=== PATIENT | male | born 1935 | race Caucasian/White ===

== ENCOUNTER 2016-12-24 11:32 | Emergency (ER) | payer OTHER, BC ==
[2016-12-24 11:49] VITALS: BP 151/89; PULSE 65; RESP 16; TEMP 97.5; O2SAT 95
--- NOTE | 2016-12-24 12:02 | UCPHY ---
H & P Patient Type: New Chief Complaint Nursing Narrative: Rash supraumbilical x 3 days. denies itching. Denies recent travel or camping. Denies f/c Time Seen by Provider: 12/24/16 11:50 HPI/ROS: CHIEF COMPLAINT: Rash HISTORY OF PRESENT ILLNESS: Patient is an 81-year-old man who comes to the Urgent Care complaining of a rash over his abdomen and somewhat on his lower chest. He 1st noticed it 2 days ago. It is pruritic. It is not itchy. It is not unilateral. He thought maybe he got a tick bite but has not spent time outside. Also it is winter. REVIEW OF SYSTEMS: Constitutional: denies: chills, fever, recent illness, recent injury EENTM: denies: blurred vision, double vision, nose congestion Respiratory: denies: cough, shortness of breath Cardiac: denies: chest pain, irregular heart rate, lightheadedness, palpitations Gastrointestinal/Abdominal: denies: abdominal pain, diarrhea, nausea, vomiting, blood streaked stools Genitourinary: denies: dysuria, frequency, hematuria, pain Musculoskeletal: denies: joint pain, muscle pain Skin: See HPI Neurological: denies: headache, numbness, paresthesia, tingling, dizziness, weakness Hematologic/Lymphatic: denies: blood clots, easy bleeding, easy bruising Immunologic/allergic: denies: HIV/AIDS, transplant EXAM: GENERAL: Well-appearing, well-nourished and in no acute distress. HEAD: Atraumatic, normocephalic. EYES: Pupils equal round and reactive to light, extraocular movements intact, sclera anicteric, conjunctiva are normal. ENT: TMs normal, nares patent, oropharynx clear without exudates. Moist mucous membranes. NECK: Normal range of motion, supple without lymphadenopathy or JVD. LUNGS: Breath sounds clear to auscultation bilaterally and equal. No wheezes rales or rhonchi. HEART: Regular rate and rhythm without murmurs, rubs or gallops. ABDOMEN: Soft, nontender, normoactive bowel sounds. No guarding, no rebound. No masses appreciated. BACK: No CVA tenderness, no spinal tenderness, step-offs or deformities EXTREMITIES: Normal range of motion, no pitting or edema. No clubbing or cyanosis. NEUROLOGICAL: Cranial nerves II through XII grossly intact. Normal speech, normal gait. 5/5 strength, normal movement in all extremities, normal sensation PSYCH: Normal mood, normal affect. SKIN: Small excoriated rash over abdomen, bilateral, seem to be centered around hair follicles, no pustules Source: Patient Exam Limitations: No limitations - Medical/Surgical History Hx Asthma: No Hx Chronic Respiratory Disease: No Hx Diabetes: No Hx Cardiac Disease: No Hx Renal Disease: No Hx Cirrhosis: No Hx Alcoholism: No Hx HIV/AIDS: No Hx Splenectomy or Spleen Trauma: No Other PMH: PCP [facility]. Flu Vacc UTD . Tetanus UTD - Family History Significant Family History: Hypertension - Social History Smoking Status: Former smoker Alcohol Use: Sober Drug Use: None Constitutional: Initial Vital Signs Temperature (C) 36.4 C 12/24/16 11:46 Heart Rate 65 12/24/16 11:46 Respiratory Rate 16 12/24/16 11:46 Blood Pressure 151/89 H 12/24/16 11:46 O2 Sat (%) 95 12/24/16 11:46 O2 Delivery Mode Room Air Allergies/Adverse Reactions: No Known Allergies Allergy (Verified 12/24/16 11:49) Home Medications: Medication Instructions Recorded Aspirin EC 81 mg (*) 07/01/16 Simvastatin 07/01/16 Cephalexin [Keflex] 500 mg PO TID #21 cap 12/24/16 Medical Decision Making ED Course/Re-evaluation: Patient has what appears to be folliculitis. No obvious cause. No hot tub use or outdoors. No sign of insect bites on legs or extremities or back. Differential Diagnosis: Partial list of the Differential diagnosis considered include but were not limited to; shingles, folliculitis, acne, candidiasis, insect bites, tenia and although unlikely based on the history and physical exam, I also considered allergic reaction, Montesinos Shaq's. I discussed these differential diagnoses and the plan with the patient as well as the usual and expected course. The patient understands that the diagnosis is provisional and that in medicine we are not always correct and that further workup is often warranted. Usual and customary warnings were given. All of the patient's questions were answered. The patient was instructed to return to the emergency department should the symptoms at all worsen or return, otherwise to followup with the physician as we discussed. - Data Points Medications Given: Discontinued Medications Cephalexin HCl (Keflex) 500 mg PO EDNOW ONE PRN Reason: Protocol Stop: 12/24/16 12:04 Last Admin: 12/24/16 12:11 Dose: 500 mg Departure - Departure Disposition: Home, Routine, Self-Care Clinical Impression: Folliculitis Condition: Fair Instructions: Folliculitis (ED) Referrals: Fer Shaikh MD [Primary Care Provider] - As per Instructions Prescriptions: Cephalexin [Keflex] 500 mg PO TID #21 cap - PQRS PQRS Measurement: 134: Depression screening and followup, PRIME MD-PHQ2 (12 years and older) Over the last 2 weeks, how often have you been bothered by any of the following problems? 1. Feeling down, depressed, or hopeless? 2. Little interest or pleasure in doing things? Patient answered no to both 1 and 2 130: Documentation of medications. Reviewed all patient medications, doses, route and frequency. 226: Do you smoke? No. 47: 65 and older: Advanced care planning. Patient designates surrogate decision maker as spouse . Patient has advanced directive. 51: 18 years old and older with diagnosis of COPD, spirometry performance. Spirometry not performed; equipment not available. 52: 18 years old and older with COPD and symptoms of COPD or FEV1<60% predicted prescribed a B Agonist. Not applicable
[2016-12-24] MEDS ORDERED: CEPHALEXIN 500 MG CAP PO ONE (12:03)
== END 2016-12-24 12:13 | disposition home or self-care (01) ==
LOC: CED 11:32
DX: L73.9 Follicular disorder, unspecified (principal)
CPT/HCPCS: 99204-PO; G0463-PO

== ENCOUNTER 2017-03-31 14:20 | Emergency (ER) | payer OTHER, BC ==
[2017-03-31] MEDS ORDERED: ONDANSETRON 4 MG/2 ML VIAL IVP ONE (14:29)
[2017-03-31] MEDS ORDERED: NS 1,000 ML IV ONE ×2 (14:29→15:50)
[2017-03-31] MEDS ORDERED: HYDROmorphONE/DILAUDID 1 MG/ML SYR IVP ONE ×2 (14:29→14:56)
--- NOTE | 2017-03-31 14:34 | EDPHY ---
H & P Smoking Status: Former smoker <DarianadarioDarling arizaughlin Sruthi - Last Filed: 03/31/17 15:11> <Adry Christianson - Last Filed: 03/31/17 22:44> Time Seen by Provider: 03/31/17 14:26 HPI/ROS: HPI Right flank pain. 81-year-old male by private vehicle with his daughter. This patient complains of right-sided flank pain with radiation down into the right groin area and right testicle, onset about 2 hours prior to arrival. He does not have a prior history of kidney stones. There is no history of trauma. He denies hematuria. No fever. Pain described as cramping and sharp. He has had nausea and dry heaving. ROS: Constitutional: No fever, no chills. No weakness. Eyes: No discharge. No changes in vision. ENT: No sore throat. No nasal congestion or rhinorrhea. Respiratory: No cough. No shortness of breath. Cardiac: No chest pain, no palpitations. Gastrointestinal: As above, no diarrhea. Genitourinary: No hematuria. No dysuria or increased frequency with urination. Musculoskeletal: No back pain. No neck pain. No myalgias or arthralgias. Skin: No rashes. Neurological: No headache. No focal weakness or altered sensation. Past medical history: No significant past medical history. Social history: Here with his daughter who is a nurse. Nonsmoker. No alcohol. Physical Exam: General Appearance: Alert, appears anxious on uncomfortable. This patient is responding to questions appropriately and in full sentences. This patient appears well-hydrated and well-nourished. Eyes: Pupils equal and round no pallor or injection. No lid edema, erythema or injection. Respiratory: There are no retractions, lungs are clear to auscultation with good air movement bilaterally. Cardiovascular: Regular rate and rhythm. No murmur. Gastrointestinal: Abdomen is soft with vague right lower quadrant tenderness on palpation, no masses, bowel sounds normal. No focal tenderness at McBurney' s point. No Caballero sign. Neurological: Motor sensory function is grossly intact. Cranial nerves are normal. Gait is normal. Skin: Warm and dry, no rashes. Musculoskeletal: Right sided CVA tenderness on palpation. No left-sided tenderness. Extremities are symmetrical. All joints range without pain or impingement. Psychiatric: No agitation. No depression. Database: EKG: Imaging: Procedures: Emergency department course: IV placed. He was placed on a monitor. He was started on IV normal saline with 1 L to be given over the next hour. He will initially be given 1 mg of IV hydromorphone and 4 mg of IV Zofran. After verification of a normal creatinine he will be given 30 mg of IV Toradol. Plan for CT imaging discussed with patient and daughter. Patient consents. 3:00 p.m., patient awaits CT imaging. Care turned over to Dr. Adry Christianson at this time. Differential Diagnosis: The differential diagnosis on this patient includes but is not limited to ureterolithiasis. Epidural abscess, AAA, testicular torsion, pyelonephritis, appendicitis unlikely. This represents a partial list of diagnoses considered. These considerations are based on history, physical exam, past history, reassessment and diagnostic testing. (Thelma Quiroz) Constitutional: Initial Vital Signs Temperature (C) 36.6 C 03/31/17 14:24 Heart Rate 83 03/31/17 14:24 Respiratory Rate 16 03/31/17 14:24 Blood Pressure 189/116 H 03/31/17 14:24 O2 Sat (%) 94 03/31/17 14:24 O2 Delivery Mode Room Air O2 (L/minute) 2 Allergies/Adverse Reactions: No Known Allergies Allergy (Verified 03/31/17 14:32) Home Medications: Medication Instructions Recorded Aspirin EC 81 mg (*) 07/01/16 Simvastatin 07/01/16 Hydrocodone/APAP 5/325 [Shelley 1 - 2 tab PO Q4H PRN #6 tab 03/31/17 5/325 (*)] Medical Decision Making <Thelma Quiroz - Last Filed: 03/31/17 15:11> - Diagnostics Imaging: Discussed imaging studies w/ call center director Radiologist <Adry Christianson - Last Filed: 03/31/17 22:44> - Diagnostics Imaging Results: Imaging Impressions Abdomen/Pelvis CT 03/31/17 14:29 Impression: 1. 2 mm stone at the right ureterovesical junction with mild to moderate obstructive uropathy. 2. Bilateral nephrolithiasis. 3. Coronary artery atherosclerosis. 4. Additional findings as above. Findings discussed with Dr. Christianson on 03/31/2017 at 1546 hours. Attention: This CT examination is specifically designed to evaluate patients who are clinically suspected of having acute obstructive uropathy. This examination does not use radiographic contrast, and as such, provides only a limited evaluation of the abdomen, pelvis and retroperitoneum. If there is further clinical suspicion for pathological conditions other than obstructive uropathy, a complete CT evaluation of the abdomen and pelvis utilizing intravenous and oral contrast should be considered. ED Course/Re-evaluation: 81-year-old man presents complaining of right flank pain. I assumed care from Dr. Quiroz while patient was awaiting results of CT scan to evaluate for renal stone. Patient's renal function was normal and he was given ketorolac with resolution of his pain. CT scan revealed 2 mm stone at the right UV junction. Patient was feeling improved. We discussed home care. Given the location of the stone he was not started on Flomax. He is discharged home to follow up with primary care physician and strain his urine. (Adry Christianson) - Data Points Laboratory Results: Laboratory Results 03/31/17 14:39 03/31/17 14:39 03/31/17 03/31/17 03/31/17 16:10 14:39 14:39 WBC 8.07 10^3/uL 10^3/uL (3.80-9.50) RBC 4.92 10^6/uL 10^6/uL (4.40-6.38) Hgb 14.4 g/dL g/dL (13.7-17.5) Hct 43.1 % % (40.0-51.0) MCV 87.6 fL fL (81.5-99.8) MCH 29.3 pg pg (27.9-34.1) MCHC 33.4 g/dL g/dL (32.4-36.7) RDW 13.4 % % (11.5-15.2) Plt Count 160 10^3/uL 10^3/uL (150-400) MPV 9.6 fL fL (8.7-11.7) Neut % (Auto) 70.0 % % (39.3-74.2) Lymph % (Auto) 21.3 % % (15.0-45.0) Divide % (Auto) 7.7 % % (4.5-13.0) Eos % (Auto) 0.4 % L % (0.6-7.6) Baso % (Auto) 0.2 % L % (0.3-1.7) Nucleat RBC Rel Count 0.0 % % (0.0-0.2) Absolute Neuts (auto) 5.65 10^3/uL 10^3/uL (1.70-6.50) Absolute Lymphs (auto) 1.72 10^3/uL 10^3/uL (1.00-3.00) Absolute Monos (auto) 0.62 10^3/uL 10^3/uL (0.30-0.80) Absolute Eos (auto) 0.03 10^3/uL 10^3/uL (0.03-0.40) Absolute Basos (auto) 0.02 10^3/uL 10^3/uL (0.02-0.10) Absolute Nucleated RBC 0.00 10^3/uL 10^3/uL (0-0.01) Immature Gran % 0.4 % % (0.0-1.1) Immature Gran # 0.03 10^3/uL 10^3/uL (0.00-0.10) Sodium 141 mEq/L mEq/L (134-144) Potassium 4.3 mEq/L mEq/L (3.5-5.2) Chloride 105 mEq/L mEq/L (97-110) Carbon Dioxide 22 mEq/l mEq/l (22-31) Anion Gap 14 mEq/L mEq/L (8-16) BUN 11 mg/dL mg/dL (7-23) Creatinine 0.9 mg/dL mg/dL (0.7-1.3) Estimated GFR > 60 Glucose 103 mg/dL H mg/dL (70-100) Calcium 8.9 mg/dL mg/dL (8.5-10.4) Urine Color YELLOW Urine Appearance HAZY Urine pH 5.0 (5.0-7.5) Ur Specific Ray 1.025 (1.002-1.030) Urine Protein NEGATIVE (NEGATIVE) Urine Ketones TRACE H (NEGATIVE) Urine Blood NEGATIVE (NEGATIVE) Urine Nitrate NEGATIVE (NEGATIVE) Urine Bilirubin NEGATIVE (NEGATIVE) Urine Urobilinogen 0.2 EU EU (0.2-1.0) Ur Leukocyte Esterase NEGATIVE (NEGATIVE) Urine RBC NONE SEEN /hpf /hpf (0-3) Urine WBC NONE SEEN /hpf /hpf (0-3) Ur Epithelial Cells TRACE /lpf /lpf (NONE-1+) Sodium Urate Crystals 3+ /hpf H /hpf (NONE-1+) Amorphous Sediment TRACE /hpf /hpf (NONE-1+) Urine Bacteria TRACE /hpf H /hpf (NONE SEEN) Urine Mucus 2+ /lpf H /lpf (NONE-1+) Urine Glucose NEGATIVE (NEGATIVE) Medications Given: Discontinued Medications Hydromorphone HCl (Dilaudid) 1 mg IVP EDNOW ONE Stop: 03/31/17 14:30 Last Admin: 03/31/17 14:45 Dose: 1 mg Hydromorphone HCl (Dilaudid) 0.5 mg IVP EDNOW ONE Stop: 03/31/17 14:57 Last Admin: 03/31/17 15:00 Dose: 0.5 mg Sodium Chloride (Ns) 1,000 mls @ 0 mls/hr IV ONCE ONE; Wide Open PRN Reason: Protocol Stop: 03/31/17 14:30 Last Admin: 03/31/17 14:42 Dose: 1,000 mls Sodium Chloride (Ns) 1,000 mls @ 0 mls/hr IV ONCE ONE PRN Reason: Wide Open Stop: 03/31/17 15:51 Last Admin: 03/31/17 15:50 Dose: 1,000 mls Ketorolac Tromethamine (Toradol) 15 mg IVP EDNOW ONE Stop: 03/31/17 15:11 Last Admin: 03/31/17 15:20 Dose: 15 mg Ondansetron HCl (Zofran) 4 mg IVP EDNOW ONE Stop: 03/31/17 14:30 Last Admin: 03/31/17 14:44 Dose: 4 mg Departure <Thelma Quiroz - Last Filed: 03/31/17 15:11> <Adry Christianson - Last Filed: 03/31/17 22:44> - Departure Disposition: Home, Routine, Self-Care Clinical Impression: Kidney stone on right side Condition: Good Instructions: Kidney Stones (ED) Additional Instructions: Your diagnosed today with a 2 mm kidney stone. You may take ibuprofen 600 mg up to 4 times a day for pain. If pain is severe you may take the Shelley tabs with the ibuprofen. Follow up with her primary care physician to have your blood pressure recheck. Return immediately for any fever, nausea vomiting or pain out of control. Referrals: Bertin Espinoza MD [Medical Doctor] - As per Instructions Prescriptions: Hydrocodone/APAP 5/325 [Shelley 5/325 (*)] 1 - 2 tab PO Q4H PRN #6 tab PRN Reason: Pain, Moderate
[2017-03-31 14:40] VITALS: RESP 16; TEMP 97.9
[2017-03-31 14:41] LABS: % IMMATURE GRANULYOCYTES 0.4 % (0.0-1.1); ABSOLUTE IMMATURE GRANULOCYTES 0.03 10^3/uL (0.00-0.10); ADD DIFF? NO; ADD MORPH? NO; ADD SCAN? NO; ATYPICAL LYMPHOCYTE FLAG 0 (0-99); FRAGMENT RBC FLAG 0 (0-99); HEMATOCRIT 43.1 % (40.0-51.0); HEMOGLOBIN 14.4 g/dL (13.7-17.5); LEFT SHIFT FLG 0 (0-99); LIPEMIA HEMOLYSIS FLAG 80 (0-99); MEAN CELL HEMOGLOBIN 29.3 pg (27.9-34.1); MEAN CELL HEMOGLOBIN CONCENTR. 33.4 g/dL (32.4-36.7); MEAN CELL VOLUME 87.6 fL (81.5-99.8); MEAN PLATELET VOLUME 9.6 fL (8.7-11.7); PLATELET CLUMPS FLAG 0 (0-99); PLATELET COUNT 160 10^3/uL (150-400); RED BLOOD CELL COUNT 4.92 10^6/uL (4.40-6.38); RED CELL DISTRIBUTION WIDTH 13.4 % (11.5-15.2)
[2017-03-31 15:00] LABS: ANION GAP 14 mEq/L (8-16); CALCIUM 8.9 mg/dL (8.5-10.4); CARBON DIOXIDE 22 mEq/l (22-31); CHLORIDE 105 mEq/L (97-110); CREATININE 0.9 mg/dL (0.7-1.3); GLOMERULAR FILTRATION RATE > 60; GLUCOSE 103 mg/dL (70-100); POTASSIUM 4.3 mEq/L (3.5-5.2); SODIUM 141 mEq/L (134-144)
[2017-03-31] MEDS ORDERED: KETOROLAC 15 MG/1 ML SDV IVP ONE (15:10)
[2017-03-31 16:17] LABS: COLOR YELLOW; LEUKOCYTE ESTERASE,URINE NEGATIVE (NEGATIVE); NITRITE,URINE NEGATIVE (NEGATIVE)
[2017-03-31 16:26] LABS: AMORPHOUS TRACE /hpf (NONE-1+); BACTERIA TRACE /hpf (NONE SEEN); MUCUS 2+ /lpf (NONE-1+); RBC,URINE NONE SEEN /hpf (0-3); SODIUM URATE CRYSTAL 3+ /hpf (NONE-1+); WBC,URINE NONE SEEN /hpf (0-3)
[2017-03-31 16:46] VITALS: BP 163/92; PULSE 77; O2SAT 93
== END 2017-03-31 16:30 | disposition home or self-care (01) ==
LOC: CED 14:20
DX: N20.0 Calculus of kidney (principal); Z79.82 Long term (current) use of aspirin; Z87.891 Personal history of nicotine dependence
CPT/HCPCS: 74176; 96361; 96374; 96375; 99285; J1170; J1885; J2405; 80048-PO; 81003-PO; 81015-PO; 85025-PO

== ENCOUNTER → 2017-04-24 | Outpatient (CLI) | payer OTHER, BC | LOC: CIMAGING 08:45 | PROVIDERS: ATTEND Urology | DX: N20.0 Calculus of kidney (principal) | CPT/HCPCS: 74000-PO; 76770-PO ==

== ENCOUNTER 2017-07-01 12:12 | Day surgery (SDC) | payer OTHER, BC ==
[2017-07-01] MEDS ORDERED: NS 500 ML IV ONE (12:22)
[2017-07-01] MEDS ORDERED: BENZOCAINE UNIT DOSE SPRAY HURRICAINE MM ONE (12:22)
[2017-07-01] MEDS ORDERED: ATROPINE SULFATE 1 MG/10 ML SYR IVP ONE (12:22)
--- NOTE | 2017-07-01 12:39 | CPEKG ---
Heart Rate: 125 RR Interval: 480 P-R Interval: 100 QRSD Interval: 92 QT Interval: 352 QTC Interval: 508 P [place]: 86 QRS [place]: -55 T Wave [place]: 68 EKG Severity - ABNORMAL ECG - EKG Impression: Atrial flutter Electronically Signed By: Telly Mcnulty 01-Jul-2017 15:15:39
[2017-07-01 13:06] LABS: APTT 34.8 SEC (23.0-38.0); INR 1.39 (0.83-1.16)
[2017-07-01 13:21] LABS: ANION GAP 9 mEq/L (8-16); CALCIUM 9.1 mg/dL (8.5-10.4); CARBON DIOXIDE 22 mEq/l (22-31); CHLORIDE 106 mEq/L (97-110); CREATININE 0.9 mg/dL (0.7-1.3); GLOMERULAR FILTRATION RATE > 60; GLUCOSE 90 mg/dL (70-100); MAGNESIUM 2.2 mg/dL (1.6-2.3); POTASSIUM 4.6 mEq/L (3.5-5.2); SODIUM 137 mEq/L (134-144)
[2017-07-01] MEDS ORDERED: PROPOFOL 200 MG/20 ML VIAL ONE (13:30)
--- NOTE | 2017-07-01 13:37 | PDANEPAE ---
ANE History of Present Illness a flutter p/f RUSSEL/CV ANE Past Medical History - Cardiovascular History Hx Hypertension: No Hx Arrhythmias: Yes Hx Chest Pain: No Hx Coronary Artery / Peripheral Vascular Disease: Yes Hx CHF / Valvular Disease: No Hx Palpitations: Yes - Pulmonary History Hx COPD: No Hx Asthma/Reactive Airway Disease: No Hx Recent Upper Respiratory Infection: No Hx Oxygen in Use at Home: No Hx Sleep Apnea: No - Endocrine History Hx Diabetes: No Obesity: no ANE Review of Systems Review of Systems: - Exercise capacity METS (RN): 4 METS ANE Patient History - Allergies Allergies/Adverse Reactions: No Known Allergies Allergy (Verified 03/31/17 14:32) - Home Medications Home medications: home medication list seen and reviewed Home Medications: Aspirin EC 81 mg (*) 07/01/16 [Last Taken Unknown] Simvastatin 07/01/16 [Last Taken Unknown] - Anes Hx Anes Hx: no prior problems - Smoking Hx Smoking Status: Former smoker - Family Anes Hx Family Anes Hx: none ANE Labs/Vital Signs - Labs Result Diagrams: 07/01/17 12:50 - Vital Signs Height: 175 cm Weight: 65.8 kg ANE Physical Exam - Airway Neck exam: FROM Mallampati Score: Class 1 Mouth exam: normal dental/mouth exam - Pulmonary Pulmonary: no respiratory distress - Cardiovascular Cardiovascular: regular rate and rhythym - ASA Status ASA Status: III ANE Anesthesia Plan Anesthesia Plan: GA with mask
--- NOTE | 2017-07-01 14:00 | PDHPUP ---
History & Physical Update H&P update statement: This history and physical update is based on an assessment of the patient which was completed after admission or registration (within 24 hours), but prior to the surgery/procedure. H&P update: H&P reviewed & patient examined, no change in patient's condition since H&P completed
--- NOTE | 2017-07-01 14:36 | CPEKG ---
Heart Rate: 64 RR Interval: 938 P-R Interval: 248 QRSD Interval: 96 QT Interval: 444 QTC Interval: 458 P [place]: 66 QRS [place]: 2 T Wave [place]: 66 EKG Severity - ABNORMAL ECG - EKG Impression: SINUS RHYTHM EKG Impression: VENTRICULAR PREMATURE COMPLEX EKG Impression: FIRST DEGREE AV BLOCK Electronically Signed By: Telly Mcnulty 01-Jul-2017 15:12:18
--- NOTE | 2017-07-01 15:33 | POSTANESTH ---
Post Anesthetic Evaluation Cardiovascular Status: Normal, Stable Respiratory Status: Normal, Stable Level of Consciousness/Mental Status: Can Participate in Eval Pain Control: Adequate, Prn Tx Ordered Nausea/Vomiting Control: Adequate, Prn Tx Ordered Complications Possibly Related to Anesthesia: None Noted
== END 2017-07-01 16:09 | disposition home or self-care (01) ==
LOC: FCATH 12:12
PROVIDERS: ATTEND Internal Medicine Cardiovascular Disease
PROC: 5A2204Z Restoration of Cardiac Rhythm, Single (ICD-10-PCS; principal; 2017-07-01)
PROC: B245ZZ4 Ultrasonography of Left Heart, Transesophageal (ICD-10-PCS; principal; 2017-07-01)
DX: I48.3 Typical atrial flutter (principal); E78.5 Hyperlipidemia, unspecified; Z87.891 Personal history of nicotine dependence
CPT/HCPCS: J2704

== ENCOUNTER 2017-07-08 07:40 | Inpatient (IN) | payer OTHER, BC ==
--- NOTE | 2017-07-08 07:48 | CPEKG ---
Heart Rate: 113 RR Interval: 531 QRSD Interval: 92 QT Interval: 372 QTC Interval: 510 QRS [place]: 80 T Wave [place]: 73 EKG Severity - ABNORMAL ECG - EKG Impression: ATRIAL FLUTTER WITH 2:1 AV BLOCK EKG Impression: LOW VOLTAGE IN FRONTAL LEADS EKG Impression: PROLONGED QT INTERVAL Electronically Signed By: Thelma Quiroz 08-Jul-2017 08:11:52
[2017-07-08] MEDS ORDERED: NS 500 ML IV ONE (07:49)
--- NOTE | 2017-07-08 08:05 | EDPHY ---
H & P Time Seen by Provider: 07/08/17 07:43 HPI/ROS: HPI Palpitations. 81-year-old male by private vehicle with a friend who is a nurse. Patient has a history of atrial flutter. He had been started on metoprolol at 25 mg twice daily by his primary care physician as well as Xarelto. He currently takes Xarelto 20 mg daily along with his metoprolol. He was seen by ethics officer Dr. Kyle Whatley on August 26. He then had a RUSSEL followed by successful cardioversion on July 01. He reports that yesterday since 3:00 p.m. he again has felt palpitations. No associated chest pain or shortness of breath. He reports these palpitations have been consistent since that time. He took his medications per usual yesterday and took 25 mg of metoprolol this morning. ROS: Constitutional: No fever, no chills. No weakness. Eyes: No discharge. No changes in vision. ENT: No sore throat. No nasal congestion or rhinorrhea. Respiratory: No cough. No shortness of breath. Cardiac: No chest pain, as above. Gastrointestinal: No abdominal pain, no vomiting, no diarrhea. Genitourinary: No hematuria. No dysuria or increased frequency with urination. Musculoskeletal: No back pain. No neck pain. No myalgias or arthralgias. Skin: No rashes. Neurological: No headache. No focal weakness or altered sensation. 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 Social history: Nonsmoker. No alcohol. Here with a friend of his. Currently lives alone. Physical Exam: General Appearance: Alert, no distress. This patient is responding to questions appropriately and in full sentences. This patient appears well- hydrated and well-nourished. Eyes: Pupils equal and round no pallor or injection. No lid edema, erythema or injection. Respiratory: There are no retractions, lungs are clear to auscultation anteriorly with good air movement bilaterally. Cardiovascular: Irregular rhythm. Tachycardia No murmur. Gastrointestinal: Abdomen is soft and nontender, no masses, bowel sounds normal. No focal tenderness at McBurney's point. No Caballero sign. Neurological: Motor sensory function is grossly intact. Cranial nerves are normal. Gait is normal. Skin: Warm and dry, no rashes. Musculoskeletal: Neck is supple and nontender. Extremities are symmetrical. All joints range without pain or impingement. Psychiatric: No agitation. No depression. Database: EKG: EKG time is 7:46 a.m.; EKG shows a narrow complex atrial flutter with 2-1 av block and intermittent variable block rate average of 113. No ST, T-wave changes indicative of ischemic or injury pattern. No evidence of right heart strain. Imaging: Procedures: Emergency department course: IV placed. Vital signs reviewed. He was started on IV normal saline with 500 cc to be given over the next hour. EKG obtained and reviewed by myself. At this time his rate average is right around 100. He dips down into the 80s. He will be given the fluid bolus and reassessed. He is otherwise asymptomatic. Blood pressure is in the 130 systolic. I feel that treatment with calcium channel blockers or additional beta dedrick is premature at this time. Likely plan will be to admit him to the hospitalist service for echocardiogram followed by cardioversion. His ethics officer can see him and discuss further treatment options. His medical records were reviewed by myself. He has normal TSH on blood draws from June 24 June 26 of this year. 9:30 a.m., patient resting comfortably. At this time his rate is hovering in the upper 80s to 105. Results of laboratory work discussed with him and his friend. Plan for admission and transfer to [facility] discussed. He endorses. All of his questions were answered. 9:35 a.m., spoke with hospitalist, Dr. Marquez Lewis. He accepts this patient for admission. 9:45 a.m., patient is comfortable. Denies any chest pain or shortness of breath. Ventricular rate is averaging 100-110. He was given 25 mg of oral metoprolol. He is awaiting transfer. 10:45 a.m., patient's remaining emergency department course under my care has been uneventful. He has remained in atrial flutter with variable block rate running at 95-110. He was transferred in stable condition by ambulance to [facility]. Differential Diagnosis: The differential diagnosis on this patient includes but is not limited to atrial flutter with rapid ventricular response, atrial flutter with 2-1 av block. Acute coronary syndrome, pulmonary embolism, thyroid disorder unlikely. This represents a partial list of diagnoses considered. These considerations are based on history, physical exam, past history, reassessment and diagnostic testing. Smoking Status: Former smoker Constitutional: Initial Vital Signs Heart Rate 110 H 07/08/17 07:49 Respiratory Rate 18 07/08/17 07:49 Blood Pressure 127/92 H 07/08/17 07:49 O2 Sat (%) 96 07/08/17 07:49 O2 Delivery Mode Room Air Allergies/Adverse Reactions: No Known Allergies Allergy (Verified 07/08/17 07:54) Home Medications: Medication Instructions Recorded Simvastatin [Zocor] 10 mg PO DAILY18 #0 07/01/16 Metoprolol Tartrate [Lopressor 25 25 mg PO BID 07/08/17 mg (*)] Rivaroxaban [Xarelto 10mg (*)] 20 mg PO DAILY18 07/08/17 Medical Decision Making - Data Points Laboratory Results: Laboratory Results 07/08/17 07:50 07/08/17 07:50 07/08/17 07/08/17 07/08/17 07:50 07:50 07:50 WBC RBC Hgb Hct MCV MCH MCHC RDW Plt Count MPV Neut % (Auto) Lymph % (Auto) [place] % (Auto) Eos % (Auto) Baso % (Auto) Nucleat RBC Rel Count Absolute Neuts (auto) Absolute Lymphs (auto) Absolute Monos (auto) Absolute Eos (auto) Absolute Basos (auto) Absolute Nucleated RBC Immature Gran % Immature Gran # PT 16.2 SEC H SEC (12.0-15.0) INR 1.33 H (0.83-1.16) APTT 36.6 SEC SEC (23.0-38.0) Sodium 139 mEq/L mEq/L (134-144) Potassium 4.3 mEq/L mEq/L (3.5-5.2) Chloride 107 mEq/L mEq/L (97-110) Carbon Dioxide 20 mEq/l L mEq/l (22-31) Anion Gap 12 mEq/L mEq/L (8-16) BUN 10 mg/dL mg/dL (7-23) Creatinine 0.8 mg/dL mg/dL (0.7-1.3) Estimated GFR > 60 Glucose 157 mg/dL H mg/dL (70-100) Calcium 8.8 mg/dL mg/dL (8.5-10.4) Creatine Kinase 149 IU/L IU/L (0-224) CK-MB (CK-2) Fraction Pending CK-MB (CK-2) % 3.3 % % (0.0-4.0) Creatine Kinase Interp NEGATIVE (NEGATIVE) Troponin I 0.020 ng/mL ng/mL (0.000-0.034) TSH 2.110 uIU/mL uIU/mL (0.465-4.680) 07/08/17 07:50 WBC 6.65 10^3/uL 10^3/uL (3.80-9.50) RBC 5.23 10^6/uL 10^6/uL (4.40-6.38) Hgb 15.4 g/dL g/dL (13.7-17.5) Hct 46.0 % % (40.0-51.0) MCV 88.0 fL fL (81.5-99.8) MCH 29.4 pg pg (27.9-34.1) MCHC 33.5 g/dL g/dL (32.4-36.7) RDW 13.6 % % (11.5-15.2) Plt Count 181 10^3/uL 10^3/uL (150-400) MPV 10.1 fL fL (8.7-11.7) Neut % (Auto) 64.4 % % (39.3-74.2) Lymph % (Auto) 23.8 % % (15.0-45.0) [place] % (Auto) 9.6 % % (4.5-13.0) Eos % (Auto) 1.4 % % (0.6-7.6) Baso % (Auto) 0.5 % % (0.3-1.7) Nucleat RBC Rel Count 0.0 % % (0.0-0.2) Absolute Neuts (auto) 4.29 10^3/uL 10^3/uL (1.70-6.50) Absolute Lymphs (auto) 1.58 10^3/uL 10^3/uL (1.00-3.00) Absolute Monos (auto) 0.64 10^3/uL 10^3/uL (0.30-0.80) Absolute Eos (auto) 0.09 10^3/uL 10^3/uL (0.03-0.40) Absolute Basos (auto) 0.03 10^3/uL 10^3/uL (0.02-0.10) Absolute Nucleated RBC 0.00 10^3/uL 10^3/uL (0-0.01) Immature Gran % 0.3 % % (0.0-1.1) Immature Gran # 0.02 10^3/uL 10^3/uL (0.00-0.10) PT INR APTT Sodium Potassium Chloride Carbon Dioxide Anion Gap BUN Creatinine Estimated GFR Glucose Calcium Creatine Kinase CK-MB (CK-2) Fraction CK-MB (CK-2) % Creatine Kinase Interp Troponin I TSH Medications Given: Discontinued Medications Sodium Chloride (Ns) 500 mls @ 1,000 mls/hr IV EDNOW ONE PRN Reason: Protocol Stop: 07/08/17 08:18 Last Admin: 07/08/17 07:56 Dose: 500 mls Metoprolol Tartrate (Lopressor) 25 mg PO ONCE ONE Stop: 07/08/17 09:50 Last Admin: 07/08/17 10:03 Dose: 25 mg Departure - Departure Disposition: [facility] Acute Clinical Impression: Atrial flutter with rapid ventricular response
[2017-07-08 08:06] LABS: % IMMATURE GRANULYOCYTES 0.3 % (0.0-1.1); ABSOLUTE IMMATURE GRANULOCYTES 0.02 10^3/uL (0.00-0.10); ADD DIFF? NO; ADD MORPH? NO; ADD SCAN? NO; ATYPICAL LYMPHOCYTE FLAG 0 (0-99); FRAGMENT RBC FLAG 0 (0-99); HEMOGLOBIN 15.4 g/dL (13.7-17.5); LEFT SHIFT FLG 0 (0-99); LIPEMIA HEMOLYSIS FLAG 80 (0-99); MEAN CELL HEMOGLOBIN 29.4 pg (27.9-34.1); MEAN CELL HEMOGLOBIN CONCENTR. 33.5 g/dL (32.4-36.7); MEAN PLATELET VOLUME 10.1 fL (8.7-11.7); PLATELET CLUMPS FLAG 10 (0-99); PLATELET COUNT 181 10^3/uL (150-400); RED BLOOD CELL COUNT 5.23 10^6/uL (4.40-6.38); RED CELL DISTRIBUTION WIDTH 13.6 % (11.5-15.2)
[2017-07-08 08:19] LABS: APTT 36.6 SEC (23.0-38.0); INR 1.33 (0.83-1.16); PROTIME(PATIENT) 16.2 SEC (12.0-15.0)
[2017-07-08 08:20] LABS: ANION GAP 12 mEq/L (8-16); CALCIUM 8.8 mg/dL (8.5-10.4); CARBON DIOXIDE 20 mEq/l (22-31); CHLORIDE 107 mEq/L (97-110); CREATININE 0.8 mg/dL (0.7-1.3); GLOMERULAR FILTRATION RATE > 60; GLUCOSE 157 mg/dL (70-100); POTASSIUM 4.3 mEq/L (3.5-5.2); SODIUM 139 mEq/L (134-144)
[2017-07-08 08:46] LABS: CK-MB INTERPRETATION NEGATIVE (NEGATIVE)
[2017-07-08 09:00] LABS: CREATINE KINASE-MB FRACTION 4.99 ng/mL (0.00-4.55)
[2017-07-08] MEDS ORDERED: METOPROLOL TARTRATE 25 MG TAB PO ONE (09:49)
[2017-07-08] MEDS ORDERED: METOPROLOL TARTRATE 25 MG TAB ONE (09:57)
[2017-07-08] MEDS ORDERED: ACETAMINOPHEN 325 MG TAB PO PRN (13:42)
[2017-07-08] MEDS ORDERED: ONDANSETRON DISINTEGRATING 4 MG TAB PO PRN (13:42)
[2017-07-08] MEDS ORDERED: ONDANSETRON 4 MG/2 ML VIAL IVP PRN (13:42)
[2017-07-08] MEDS ORDERED: ETOMIDATE 40 MG/20 ML INJ IVP ONE ×2 (14:14→14:15)
[2017-07-08] MEDS ORDERED: MIDAZOLAM 2 MG/2 ML VIAL IVP ONE (14:14)
[2017-07-08] MEDS ORDERED: ATROPINE SULFATE 1 MG/10 ML SYR IVP ONE (14:14)
--- NOTE | 2017-07-08 14:18 | PDPROPOC ---
Sedation Plan of Care Sedation Plan of Care: vital signs stable, mental status noted, patient educated of risks, benefits, alternatives, patient can tolerate sedation ASA Classification: ASA 3 Planned drugs: midazolam, other (etomidate) Mallampati Score: Class 3 Mallampati Reference Image: Patient passed 3-3-2 rule?: Yes
--- NOTE | 2017-07-08 14:19 | PDHPUP ---
History & Physical Update H&P update statement: This history and physical update is based on an assessment of the patient which was completed after admission or registration (within 24 hours), but prior to the surgery/procedure. H&P update: H&P reviewed & patient examined (pt remains in atrial flutter), no change in patient's condition since H&P completed
--- NOTE | 2017-07-08 14:36 | GHP ---
[f rep st] HISTORY AND PHYSICAL DATE OF ADMISSION: 07/08/2017 The patient is a pleasant 81-year-old gentleman with history of atrial flutter, who was recently here in the hospital for an ablation performed by Dr. Bunch, although his primary stick puller is CANCELLED BY DICTATOR /[id number]/MODL
--- NOTE | 2017-07-08 14:57 | GHP ---
[f rep st] HISTORY AND PHYSICAL DATE OF ADMISSION: 07/08/2017 HISTORY OF PRESENT ILLNESS: The patient is a pleasant 81-year-old gentleman with a history of atrial fib/flutter, recent inpatient atrial flutter ablation, who presents with palpitations that began las t evening. He has been taking his metoprolol as prescribed, as well as his Xarelto. He thought abou t coming in last night, but he thought it would be late into the evening, so he waited until today. He has not had shortness of breath. He feels like his lower extremity edema is about the same. He i nitially had attributed to tight socks. He has not had PND or orthopnea. He has not had any chest pain or chest pressure. He has no previou s history of known coronary disease. REVIEW OF SYSTEMS: Complete 10-point review of systems conducted and negative, except as noted in th e HPI. PAST MEDICAL HISTORY: 1. Remote cerebral aneurysm rupture in the 80s. 2. Nephrolithiasis. 3. Hyperlipidemia. 4. Arthritis. 5. Degenerative disk disease. SOCIAL HISTORY: No tobacco, no alcohol. Lives alone in [place]. FAMILY HISTORY: Reviewed and unremarkable. PHYSICAL EXAM: VITAL SIGNS: Afebrile at 37, blood pressure 113/74, pulse 110-125, breathing 18 time s a minute, 95% on room air. GENERAL: No acute distress. HEENT: Sclerae anicteric. Oropharynx cl ear. Mucous membranes moist. NECK: Supple, without lymphadenopathy or JVD. LUNGS: Clear to auscu ltation bilaterally. HEART: S1, S2, with occasional irregularity, without significant murmurs. ABD OMEN: Soft, nontender, nondistended. LOWER EXTREMITIES: Show trace edema bilaterally. Calves are nontender. SKIN: Without rash. NEUROLOGIC: Exam is nonfocal. LABS: White count 6.5, hematocrit 46. Platelets are 181,000. INR is 1.3. Sodium 139, potassium 4. 3, chloride 107, bicarb 20, BUN 10, creatinine 0.8, glucose 157. Troponin 0.20. TSH is 2.1. EKG sh ows atrial flutter with 2-1 block, rate of 113. No ST or T-wave changes. I discussed the case with Dr. Linus Dickey, Dr. Thelma Quiroz, Dr. Kyle Whatley. ASSESSMENT/PLAN: This 81-year-old gentleman presents in atrial flutter despite recent cardioversion. 1. Atrial flutter. The patient is currently on a beta dedrick, and anticoagulation would be reasona ble, to consider repeat cardioversion versus procedure ablation. Dr. Dickey is discussing that with him right now. I will make him n.p.o. His rate is reasonable. I will not add IV bob agents. 2. History of cerebral aneurysm. This is very remote, not a contraindication to anticoagulation. 3. Hyperglycemia. This is a nonfasting sample. 4. Edema. This is attributable to mild heart failure from the basis of his rhythm. Will follow. Chika boswell has an outpatient echocardiogram. I do not have the results available to me, but they are being se nt over and will follow up on them before proceeding with additional echocardiogram. 5. Prophylaxis. He is therapeutically anticoagulated. /[id number]/MODL
--- NOTE | 2017-07-08 15:00 | PDTEE1 ---
RUSSEL Cardioversion Procedure Procedure: Electrical Cardioversion, Transesophageal Echo (not required, patient has been anticoagulated every day since negative RUSSEL and in a flutter for less than 24 hours...) Indications: Other (atrial flutter) Consent: Signed and in Chart Anticoagulation: Xarelto Procedural Details: Pads were placed in anterior-posterior position. RUSSEL probe was advanced and standard images obtained. There is no evidence of left atrial or left atrial appendage thrombus. Synchronized cardioversion attempt #1: 100J Results: Normal sinus rhythm Conclusions: Successful Cardioversion (The patient received Versed 2 mg and Etomidate 6 mg with successful cardioversion to normal sinus rhythm without immediate complication....) Conclusion Comment: Patient will be admitted for overnight telemetry and plan for EP consult to discuss risk benefit of definitive atrial flutter ablation. Patient Problems: Problems Problem Status Onset Atrial flutter with rapid ventricular response Acute
--- NOTE | 2017-07-08 15:01 | CPEKG ---
Heart Rate: 50 RR Interval: 1200 P-R Interval: 232 QRSD Interval: 94 QT Interval: 456 QTC Interval: 416 P [place]: 61 QRS [place]: -40 T Wave [place]: 28 EKG Severity - ABNORMAL ECG - EKG Impression: SINUS RHYTHM EKG Impression: ATRIAL PREMATURE COMPLEX EKG Impression: FIRST DEGREE AV BLOCK EKG Impression: LEFT AXIS DEVIATION Electronically Signed By: Shalini Torres 08-Jul-2017 16:31:46
--- NOTE | 2017-07-08 15:37 | GCON ---
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 He has a history o f paroxysmal and sustained atrial fibrillation and is status post successful RUSSEL-guided cardioversion on 07/01 under the care of Dr. Pete Whatley, who is his usual physician. Since 3 in the afternoon yes terday, began to feel palpitations with associated racing of his heart. Because of his concerns abou t the heart being a pump and the fact that it would have only so many cycles before failure, he felt that a heart rate that was twice as fast as it should be should deserve immediate attention and, ther efore, presented to the emergency department for evaluation of his palpitations and racing heartbeat. He denies chest discomfort, pressure or tightness. Does not feel short of breath at rest. He is t aking his medications including the Xarelto 20 mg every day since the cardioversion, has not missed a dose. REVIEW OF SYSTEMS: A 10-point review of systems is negative except as listed in the HPI. He specifi bala has denied hematuria and hematemesis. He has also denied blood in his stool. PAST MEDICAL HISTORY: Significant for hypertension, dyslipidemia, arthritis, degenerative disk disea se, ruptured brain aneurysm in 1984, kidney stones. 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 He worked in [employer]. He is a of the [employer]. He does not smoke, abuse alcohol or illicit drugs. PHYSICAL EXAMINATION: VITAL SIGNS: At the time of my evaluation, his blood pressure is 112/86, his heart rate is 120 to 140 and is irregularly irregular, respirations are 16 and unlabored, oxygen satu ration is 95% on room air. His temperature is 36.4 degrees Fahrenheit. GENERAL: He appears awake a nd alert. Oriented x3 and is in no acute distress. NECK: Reveals flutter waves without JVD. Does not have lymphadenopathy or thyromegaly. HEART: Reveals a normal S1 and S2 without S3, S4. He does not have a rub or gallop sound. He has a rapid heart rate which is irregularly irregular. LUNGS: Clear to auscultation anteriorly bilaterally. ABDOMEN: Benign, with positive bowel sounds. Nondist ended, nontender. EXTREMITIES: Warm, dry, well-perfused without significant peripheral edema. LABORATORY STUDIES REVEAL: A white count of 6.65, H and H of 15.4 and 46.0. His coags reveal PT/INR 1.33 and 16.2. His chemistry has a sodium 139, potassium 4.3, BUN and creatinine of 10 and 0.8, glu cose 157 as a nonfasting sample. His troponin I is 0.020 TSH is normal. Creatinine kinase is 149 wi th an MB percent of 3.3, which would be negative. His EKG reveals atrial flutter with a flutter rate of around 290. This is typical flutter with a QRS that reveals an RSR prime pattern most consistent with incomplete right bundle branch block and a le ftward axis. There are nonspecific ST-segment abnormalities in V4, V5 and V6 which could be consiste nt with ischemia given the flat horizontal ST-segment depression located in those leads with the tamica ent in tachycardia. IMPRESSION: Paroxysmal and sustained atrial flutter in a patient with an atrial flutter recurrence t hat has lasted approximately 24 hours since his RUSSEL. He was negative for clot and he has been in the atrial flutter for less than 24 hours. I think it would be most prudent to consider an elective car dioversion and then keep him in the hospital overnight for followup of his cardiac rhythm. I believe once the patient begins to have recurrent atrial flutter requiring cardioversion that an electrophys iology consultation for possible EP study and ablation of atrial flutter may be considered even at hi s age. /[id number]/MODL
[2017-07-08] MEDS ORDERED: NON-FORMULARY NEW DRUG (Simvastatin [Zocor] 10 MG) PO SCH (18:00)
[2017-07-08] MEDS: PRAVASTATIN SODIUM 20 MG TAB PO SCH (19:51)
[2017-07-08] MEDS: RIVAROXABAN 10 MG TAB PO SCH (19:51)
[2017-07-08] MEDS: METOPROLOL TARTRATE 25 MG TAB PO SCH (20:00)
--- NOTE | 2017-07-09 00:50 | CPEKG ---
Heart Rate: 126 RR Interval: 476 P-R Interval: 200 QRSD Interval: 88 QT Interval: 324 QTC Interval: 470 P [place]: 148 QRS [place]: -83 T Wave [place]: 19 EKG Severity - ABNORMAL ECG - EKG Impression: SINUS OR ECTOPIC ATRIAL TACHYCARDIA EKG Impression: LEFT ANTERIOR FASCICULAR BLOCK EKG Impression: LOW VOLTAGE IN FRONTAL LEADS EKG Impression: BORDERLINE REPOL ABNORMALITY, ANT-LAT LEADS Electronically Signed By: Shalini Torres 09-Jul-2017 09:58:57
[2017-07-09] MEDS ORDERED: AMIODARONE HCL 200 ML IV ONE (01:56)
[2017-07-09] MEDS ORDERED: AMIODARONE HCL 100 ML IV ONE (01:56)
[2017-07-09 04:09] LABS: ANION GAP 9 mEq/L (8-16); CALCIUM 8.4 mg/dL (8.5-10.4); CARBON DIOXIDE 21 mEq/l (22-31); CHLORIDE 107 mEq/L (97-110); CREATININE 0.8 mg/dL (0.7-1.3); GLOMERULAR FILTRATION RATE > 60; GLUCOSE 91 mg/dL (70-100); POTASSIUM 3.6 mEq/L (3.5-5.2); SODIUM 137 mEq/L (134-144)
[2017-07-09] MEDS ORDERED: AMIODARONE HCL 540 MG in D5W 300 ML IV ONE (08:00)
--- NOTE | 2017-07-09 08:40 | CPEKG ---
Heart Rate: 115 RR Interval: 522 P-R Interval: 172 QRSD Interval: 86 QT Interval: 272 QTC Interval: 376 P [place]: 101 QRS [place]: -73 T Wave [place]: 100 EKG Severity - ABNORMAL ECG - EKG Impression: SINUS TACHYCARDIA EKG Impression: LEFT AXIS DEVIATION EKG Impression: LOW VOLTAGE IN FRONTAL LEADS EKG Impression: NONSPECIFIC REPOL ABNORMALITY, DIFFUSE LEADS Electronically Signed By: Shalini Torres 09-Jul-2017 09:59:05
[2017-07-09] MEDS: METOPROLOL TARTRATE 25 MG TAB PO SCH (08:55)
[2017-07-09] MEDS ORDERED: METOPROLOL TARTRATE 25 MG TAB PO ONE ×2 (09:45→11:57)
--- NOTE | 2017-07-09 10:03 | ASMTCMCOM ---
CM Note CM Note Notes: CM spoke w/ JUNIOR Mccain and Dr. Brown regarding d/c POC. Pt is tenatively scheduled to d/c today. Pt will most likely d/c independent w/out any needs w/ a supportive neighbor who is a nurse. Pt is scheduled for cardiac ablation in July. CM available for any changes. Date Signed: 07/09/2017 10:03 AM Electronically Signed By:INDIGO Gray
--- NOTE | 2017-07-09 13:01 | PDCARCONS ---
Cardiology Consult Reason for Consult: electrophysiology consultation for atrial flutter Chief Complaint: palpitations, noticed rapid heart rate Requesting Physician: Dr. Linus Dickey, Dr. 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 He presented with recurrent elevation in heart rate and was noted to be in atrial flutter and underwent a 2nd cardioversion procedure yesterday by Dr. Linus Dickey. He reverted back to atrial flutter last night around midnight. He remains in atrial flutter with ventricular rate of 120 to 125 beats per minute. He reports no chest pain or shortness of breath. He has not had syncope. He does report that he feels occasional palpitations especially when he lies on his left side and has noticed an elevated pulse rate when he checks his pulse. History Information - Allergies/Home Medication List Allergies/Adverse Reactions: No Known Allergies Allergy (Verified 07/08/17 07:54) Home Medications: Simvastatin [Zocor] 10 mg PO DAILY18 #0 07/01/16 [Last Taken 07/07/17] Rivaroxaban [Xarelto 10mg (*)] 20 mg PO DAILY18 07/08/17 [Last Taken 07/07/17] I have personally reviewed and updated: family history, medical history, social history, surgical history Past Medical History: - Social History Smoking Status: Former smoker Physical Exam Physical Exam: Temp Pulse Resp BP Pulse Ox 36.3 C 81 20 139/81 H 95 07/09/17 11:48 07/09/17 11:48 07/09/17 11:48 07/09/17 11:48 07/09/17 11:48 Constitutional: no apparent distress, appears nourished Eyes: PERRL, EOMI Ears, Nose, Mouth, Throat: moist mucous membranes, hearing normal Cardiovascular: regular rate and rhythym, no murmur, rub, or gallop Respiratory: no respiratory distress, clear to auscultation Gastrointestinal: normoactive bowel sounds, soft, non-tender abdomen Skin: warm Neurologic: AAOx3 Psychiatric: interacting appropriately, not anxious Lab and Imaging 07/08/17 07:50 07/09/17 03:20 WBC 6.65 10^3/uL (3.80-9.50) 07/08/17 07:50 RBC 5.23 10^6/uL (4.40-6.38) 07/08/17 07:50 Hgb 15.4 g/dL (13.7-17.5) 07/08/17 07:50 Hct 46.0 % (40.0-51.0) 07/08/17 07:50 MCV 88.0 fL (81.5-99.8) 07/08/17 07:50 MCH 29.4 pg (27.9-34.1) 07/08/17 07:50 MCHC 33.5 g/dL (32.4-36.7) 07/08/17 07:50 RDW 13.6 % (11.5-15.2) 07/08/17 07:50 Plt Count 181 10^3/uL (150-400) 07/08/17 07:50 MPV 10.1 fL (8.7-11.7) 07/08/17 07:50 Neut % (Auto) 64.4 % (39.3-74.2) 07/08/17 07:50 Lymph % (Auto) 23.8 % (15.0-45.0) 07/08/17 07:50 [place] % (Auto) 9.6 % (4.5-13.0) 07/08/17 07:50 Eos % (Auto) 1.4 % (0.6-7.6) 07/08/17 07:50 Baso % (Auto) 0.5 % (0.3-1.7) 07/08/17 07:50 Nucleat RBC Rel Count 0.0 % (0.0-0.2) 07/08/17 07:50 Absolute Neuts (auto) 4.29 10^3/uL (1.70-6.50) 07/08/17 07:50 Absolute Lymphs (auto) 1.58 10^3/uL (1.00-3.00) 07/08/17 07:50 Absolute Monos (auto) 0.64 10^3/uL (0.30-0.80) 07/08/17 07:50 Absolute Eos (auto) 0.09 10^3/uL (0.03-0.40) 07/08/17 07:50 Absolute Basos (auto) 0.03 10^3/uL (0.02-0.10) 07/08/17 07:50 Absolute Nucleated RBC 0.00 10^3/uL (0-0.01) 07/08/17 07:50 Immature Gran % 0.3 % (0.0-1.1) 07/08/17 07:50 Immature Gran # 0.02 10^3/uL (0.00-0.10) 07/08/17 07:50 PT 16.2 SEC (12.0-15.0) H 07/08/17 07:50 INR 1.33 (0.83-1.16) H 07/08/17 07:50 APTT 36.6 SEC (23.0-38.0) 07/08/17 07:50 Sodium 137 mEq/L (134-144) 07/09/17 03:20 Potassium 3.6 mEq/L (3.5-5.2) 07/09/17 03:20 Chloride 107 mEq/L (97-110) 07/09/17 03:20 Carbon Dioxide 21 mEq/l (22-31) L 07/09/17 03:20 Anion Gap 9 mEq/L (8-16) 07/09/17 03:20 BUN 14 mg/dL (7-23) 07/09/17 03:20 Creatinine 0.8 mg/dL (0.7-1.3) 07/09/17 03:20 Estimated GFR > 60 07/09/17 03:20 Glucose 91 mg/dL (70-100) 07/09/17 03:20 Calcium 8.4 mg/dL (8.5-10.4) L 07/09/17 03:20 Creatine Kinase 149 IU/L (0-224) 07/08/17 07:50 CK-MB (CK-2) Fraction 4.99 ng/mL (0.00-4.55) H 07/08/17 07:50 CK-MB (CK-2) % 3.3 % (0.0-4.0) 07/08/17 07:50 Creatine Kinase Interp NEGATIVE (NEGATIVE) 07/08/17 07:50 Troponin I 0.020 ng/mL (0.000-0.034) 07/08/17 07:50 NT-Pro-B Natriuret Pep 2230 pg/mL (0-450) H 07/09/17 03:20 TSH 2.110 uIU/mL (0.465-4.680) 07/08/17 07:50 Visualized and Interpreted EKG results: Yes EKG additional interpertation: Atrial flutter, ventricular rate 120 to 125 beats per minute Telemetry: atrial flutter, ventricular rate 120 to 125 beats per minute A/P Assessment: 1. Atrial flutter Plan: Fairly healthy 81-year-old male who is presenting with recurrent atrial flutter , 2 episodes in the last 2 weeks. He has had 2 cardioversion procedures, the most recent 1 yesterday evening and has had recurrent atrial flutter. This morning his heart rate is 125 beats per minute. I have reviewed all his EKGs from this admission and previous admission. Atrial flutter is noted. Differential diagnosis includes focal atrial tachycardia though unlikely. We discussed treatment options for atrial flutter at length. He is currently on Xarelto for anticoagulation, this should be continued. At this time we are going to increase his metoprolol from 25 mg twice daily to 37.5 mg twice daily. We will increase to 50 mg twice daily if tolerated . Left ventricular ejection fraction is low normal and there is concern about tachycardia mediated cardiomyopathy if he remains in persistent tachycardia. We discussed 3 options -rate control only, antiarrhythmic drugs with repeat cardioversion procedure or an ablation procedure. At this time we are going to try and control his ventricular rate. I discussed ablation procedure with him at length including its risks which include , mi, stroke, vascular access complications, bleeding, cardiac tamponade, retroperitoneal bleed, infection, DVT, pulmonary embolism, need for permanent pacemaker etc. He is leaning towards having an ablation procedure would like to think about it for some time. I will visit with him in clinic next week to discuss further if he would like. Complex discussion, 45 minutes spent with patient, more than 50% counseling.
[2017-07-09] MEDS: DOCUSATE SODIUM 100 MG CAP PO SCH ×2 (13:35→19:44)
[2017-07-09] MEDS: POLYETHYLENE GLYCOL 3350 17 GM PKT PO SCH (13:35)
--- NOTE | 2017-07-09 15:42 | HOSPPROG ---
Hospitalist Progress Note Assessment/Plan: # Acute atrial flutter with RVR- heart rates in the 180s at presentation- remains in a flutter in the 120s this a.m. TELE (personally reviewed and interpreted) flutter in the 120's - oxygen saturations 95% on RA - continue home anticoagulation - up titrating metoprolol to 37.5 and ultimately 50 twice daily if tolerated - continue telemetry # constipation - adding colace and miralax # hyperlipidemia - cont pravachol # diet - cardiac # proph - full dose anticoagulation # dispo - > 2MN as requiring medication titration and ongoing telemetry monitoring I have discussed the case with Dr. Mcnulty - we will continue up titration of beta- dedrick overnight Subjective: feeling a bit better Objective: Vital Signs Temp Pulse Resp BP Pulse Ox 36.3 C 81 20 139/81 H 95 07/09/17 11:48 07/09/17 11:48 07/09/17 11:48 07/09/17 11:48 07/09/17 11:48 Laboratory Results 07/09/17 03:20 07/08/17 07/09/17 07/10/17 05:59 05:59 05:59 Intake Total 900 Balance 900 PT 16.2 SEC (12.0-15.0) H 07/08/17 07:50 INR 1.33 (0.83-1.16) H 07/08/17 07:50 - Physical Exam Constitutional: appears nourished Eyes: anicteric sclera Ears, Nose, Mouth, Throat: moist mucous membranes Cardiovascular: regular rate and rhythym, tachycardia Respiratory: no respiratory distress Gastrointestinal: normoactive bowel sounds, soft, non-tender abdomen Genitourinary: no bladder fullness Skin: warm Musculoskeletal: No asymmetric calves Neurologic: AAOx3 Psychiatric: interacting appropriately, not anxious Lymph, Heme, Immunologic: no cervical LAD ICD10 Worksheet Patient Problems: Problems Problem Status Onset Atrial flutter with rapid ventricular response Acute
[2017-07-09] MEDS: RIVAROXABAN 10 MG TAB PO SCH (17:59)
[2017-07-09] MEDS: PRAVASTATIN SODIUM 20 MG TAB PO SCH (17:59)
--- NOTE | 2017-07-09 18:38 | PDCARPN ---
Cardiology Progress Note Assessment/Plan: Assessment: Atrial Flutter with flutter rate up to 180. RUSSEL DCCV last evening and reverted back to A Flutter with rates 120's. He is comfortable, no SOB or edema. He will be seen by Dr Mcnulty for EP evaluation for further treatment of A Flutter. Plan:Dr Mcnulty to consult to make further recommendations. 07/09/17 18:35 Objective: Vital Signs (8 Hrs) Temp Pulse Resp BP Pulse Ox 07/09/17 16:00 36.3 C 86 19 125/67 H 95 07/09/17 11:48 36.3 C 81 20 139/81 H 95 Intake/Output (24 Hrs) 07/08/17 07/09/17 07/10/17 05:59 05:59 05:59 Intake Total 900 Balance 900 Intake: IV Intake (ml) 400 IV Infused (ml) 500 Other: Weight 67 kg Number of Voids Toilet 2 4 Number of Stools Toilet 1 Result Diagrams: 07/08/17 07:50 07/09/17 03:20 - Physical Exam Constitutional: no apparent distress Cardiovascular: no murmurs, no rubs, no gallops, irregularly irregular Respiratory: clear to auscultate bilat, no crackles, no wheezes Skin: warm, no edema Neurologic: AAOx3 Psychiatric: cooperative, interactive ICD10 Worksheet Patient Problems: Problems Problem Status Onset Atrial flutter with rapid ventricular response Acute
[2017-07-09] MEDS ORDERED: METOPROLOL TARTRATE 25 MG TAB PO SCH (21:00)
[2017-07-09] MEDS: METOPROLOL TARTRATE 50 MG TAB PO SCH (21:08)
[2017-07-10 07:46] VITALS: RESP 15; TEMP 97.8; O2SAT 98
[2017-07-10] MEDS ORDERED: METOPROLOL TARTRATE 50 MG TAB PO SCH (09:05)
[2017-07-10] MEDS: DOCUSATE SODIUM 100 MG CAP PO SCH (09:21)
[2017-07-10] MEDS: POLYETHYLENE GLYCOL 3350 17 GM PKT PO SCH (09:21)
[2017-07-10] MEDS: METOPROLOL TARTRATE 50 MG TAB PO SCH (10:00)
[2017-07-10 10:14] VITALS: BP 108/86; PULSE 79
--- NOTE | 2017-07-10 16:13 | ASDISCHSUM ---
Discharge Information Plan Status:Home with No Needs Medically Cleared to Leave:07/10/2017 Discharge Date:07/10/2017 11:31 AM CM D/C Disposition:Home, Routine, Self-Care ADT D/C Disposition:Home, Routine, Self-Care Projected Discharge Date:07/10/2017 12:00 AM Transportation at D/C: Discharge Delay Reason: Follow-Up Date:07/10/2017 12:00 AM Discharge Slot: Final Diagnosis: Placement Information Patient Contact Information Contact Name:SHAYLEE Relationship:Friend Address: Work Phone: City:[place] Phone: [facility]/[place] Code:[place] Email: Financial Information Financial Class: Primary Plan Desc:MEDICARE INPATIENT Primary Plan Number:[id number] Secondary Plan Desc:[facility] Secondary Plan Number:[id number] Assessment Information [facility] CM Progress Note CM Note CM Note Notes: CM spoke w/ JUNIOR Mccain and Dr. Brown regarding d/c POC. Pt is tenatively scheduled to d/c today. Pt will most likely d/c independent w/out any needs w/ a supportive neighbor who is a nurse. Pt is scheduled for cardiac ablation in July. CM available for any changes. Date Signed: 07/09/2017 10:03 AM Electronically Signed By:INDIGO Gray Intervention Information Intervention Type:*QUIROGA-Signed Date of Service:07/09/2017 09:28 AM Patient Type:Observation Staff Member:Jeannine Jennings Hours: Discipline: Severity: Comment: Intervention Type:*Constantino 70 Date of Service:07/10/2017 11:43 AM Patient Type:Inpatient Staff Member:JUNIOR Mujica Susan Hours: Discipline: Severity: Comment:
--- NOTE | 2017-07-10 21:22 | GDS ---
[f rep st] DISCHARGE SUMMARY DISCHARGE DIAGNOSES: Include. 1. Atrial fibrillation/flutter. 2. Nephrolithiasis. 3. Hyperlipidemia. 4. Arthritis. 5. Degenerative disk disease. HISTORY OF PRESENT ILLNESS: An 81-year-old male with a history of atrial flutter and atrial fibrilla tion, who presents with complaints of palpitations. For details of patient's initial presentation, kassandra watson see the history and physical dated 07/08/2017. CONSULTATIVE SERVICES: Include Cardiology. PROCEDURES: Include 07/08/2017, patient underwent electrical cardioversion. HOSPITAL COURSE: By issue. 1. Atrial fib/flutter. Patient presented with palpitations, was taken for cardioversion and reconve rted into atrial flutter. Patient was up titrated on his beta-blockade, continued on anticoagulation . On the day disposition patient's heart rates remained intermittently high in the low 100s. We upt itrated him to 75 mg of metoprolol twice daily, to follow in the outpatient setting with electrophysi ology for discussion related to ablation. The patient was continued on his full-dose anticoagulation . 2. Constipation. This is a chronic complaint for this patient. We initiated scheduled Colace as we ll as MiraLAX. He has been instructed to take prunes in the mornings, remain hydrated and active. MEDICATIONS AT THE TIME OF TRANSFER: Please reference med rec printed on 07/10/2017. FOLLOWUP APPOINTMENTS: Include with electrophysiology of [facility] for discussions related to ab latalysha. RESULTS PENDING AT THE TIME OF THIS DICTATION: None. TIME SPENT: I spent greater than 30 minutes in the planning and coordination of this discharge. /[id number]/MODL
== END 2017-07-10 11:31 | disposition home or self-care (01) | DRG 310 ==
LOC: CED 07:40 → CEDHOLD 09:15 → UNDOADMOB 09:15 → F2W 11:35 → OBSVTOIN 07-09 15:42
PROVIDERS: ADMIT Internal Medicine; ATTEND Internal Medicine
PROC: 5A2204Z Restoration of Cardiac Rhythm, Single (ICD-10-PCS; principal; 2017-07-08)
DX: I48.92 Unspecified atrial flutter (principal); N20.0 Calculus of kidney; E78.5 Hyperlipidemia, unspecified; K59.00 Constipation, unspecified; R73.9 Hyperglycemia, unspecified
CPT/HCPCS: 80048-PO; 82550-PO; 82553-PO; 84443-PO; 84484-PO; 85025-PO; 85610-PO; 85730-PO; G0378; J0282; J0461; J2250

== ENCOUNTER → 2017-07-17 | Outpatient (CLI) | payer OTHER, BC | LOC: BHFA 10:00 | PROVIDERS: ATTEND Internal Medicine Cardiovascular Disease | DX: I48.92 Unspecified atrial flutter (principal); I42.8 Other cardiomyopathies ==

== ENCOUNTER 2017-07-23 06:58 | Inpatient (IN) | payer OTHER, BC ==
[2017-07-23] MEDS ORDERED: NS 1,000 ML IV ONE (07:02)
--- NOTE | 2017-07-23 07:27 | CPEKG ---
Heart Rate: 125 RR Interval: 480 P-R Interval: 176 QRSD Interval: 104 QT Interval: 320 QTC Interval: 462 P [place]: 99 QRS [place]: -69 T Wave [place]: -48 EKG Severity - ABNORMAL ECG - EKG Impression: Atrial flutter EKG Impression: LAD, CONSIDER LAFB OR INFERIOR INFARCT EKG Impression: NONSPECIFIC T ABNORMALITIES, INFERIOR LEADS Electronically Signed By: Telly Mcnulty 23-Jul-2017 11:22:20
[2017-07-23] MEDS ORDERED: HEPARIN 10,000 UNIT/10 ML MDV ONE (07:36)
[2017-07-23] MEDS ORDERED: LIDOCAINE 1% 300 MG/30 ML SDV ONE (07:36)
[2017-07-23] MEDS ORDERED: BUPIVACAINE 0.5% 30 ML SDV ONE (07:37)
[2017-07-23] MEDS ORDERED: ISOPROTERENOL HCL/D5W 0.2 MG/50 ML BAG IV ONE (07:37)
[2017-07-23 07:40] LABS: % IMMATURE GRANULYOCYTES 0.2 % (0.0-1.1); ABSOLUTE IMMATURE GRANULOCYTES 0.01 10^3/uL (0.00-0.10); ADD DIFF? NO; ADD MORPH? NO; ADD SCAN? NO; ATYPICAL LYMPHOCYTE FLAG 10 (0-99); FRAGMENT RBC FLAG 0 (0-99); HEMATOCRIT 44.8 % (40.0-51.0); HEMOGLOBIN 14.4 g/dL (13.7-17.5); LEFT SHIFT FLG 0 (0-99); LIPEMIA HEMOLYSIS FLAG 80 (0-99); MEAN CELL HEMOGLOBIN 29.2 pg (27.9-34.1); MEAN CELL HEMOGLOBIN CONCENTR. 32.1 g/dL (32.4-36.7); MEAN CELL VOLUME 90.9 fL (81.5-99.8); PLATELET CLUMPS FLAG 10 (0-99); PLATELET COUNT 162 10^3/uL (150-400); RED BLOOD CELL COUNT 4.93 10^6/uL (4.40-6.38); RED CELL DISTRIBUTION WIDTH 13.9 % (11.5-15.2)
[2017-07-23 07:50] LABS: APTT 32.3 SEC (23.0-38.0); INR 1.16 (0.83-1.16); PROTIME(PATIENT) 14.8 SEC (12.0-15.0)
[2017-07-23 08:06] LABS: ANION GAP 10 mEq/L (8-16); CALCIUM 9.1 mg/dL (8.5-10.4); CARBON DIOXIDE 23 mEq/l (22-31); CHLORIDE 108 mEq/L (97-110); CREATININE 0.9 mg/dL (0.7-1.3); GLOMERULAR FILTRATION RATE > 60; GLUCOSE 91 mg/dL (70-100); POTASSIUM 4.5 mEq/L (3.5-5.2); SODIUM 141 mEq/L (134-144)
[2017-07-23] MEDS ORDERED: MIDAZOLAM 2 MG/2 ML VIAL IVP ONE (08:39)
--- NOTE | 2017-07-23 08:39 | PDANEPAE ---
ANE History of Present Illness aflutter ANE Past Medical History - Cardiovascular History Hx Hypertension: No Hx Arrhythmias: Yes Hx Chest Pain: No Hx Coronary Artery / Peripheral Vascular Disease: Yes Hx CHF / Valvular Disease: No Hx Palpitations: Yes - Pulmonary History Hx COPD: No Hx Asthma/Reactive Airway Disease: No Hx Recent Upper Respiratory Infection: No Hx Oxygen in Use at Home: No Hx Sleep Apnea: No - Endocrine History Hx Diabetes: No - Renal History Hx Renal Disorders: Yes Renal History Comment: kidney stones - Liver History Hx Hepatic Disorders: No - Neurological & Psychiatric Hx Neurological / Psychiatric History Comment: cva in past - Chronic Pain History Chronic Pain: No ANE Review of Systems Review of Systems: - Exercise capacity METS (RN): 4 METS ANE Patient History - Allergies Allergies/Adverse Reactions: No Known Allergies Allergy (Verified 07/08/17 07:54) - Home Medications Home Medications: Simvastatin [Zocor] 10 mg PO DAILY18 #0 07/01/16 [Last Taken 1 Day Ago ~07/22/17 ] Rivaroxaban [Xarelto 10mg (*)] 20 mg PO DAILY18 07/08/17 [Last Taken 3 Days Ago ~07/20/17] Docusate Sodium [Colace 100 MG (*)] 100 mg PO BID 07/22/17 [Last Taken 1 Day Ago ~07/22/17] Enoxaparin [Lovenox 60 MG (*)] 60 mg SQ BID 07/22/17 [Last Taken 1 Day Ago ~01/03] Polyethylene Glycol 3350 [Miralax 17 gm (*)] 17 gm PO DAILY PRN 07/22/17 [Last Taken 1 Day Ago ~07/22/17] - Smoking Hx Smoking Status: Former smoker ANE Labs/Vital Signs - Labs Result Diagrams: 07/23/17 07:30 07/23/17 07:30 - Vital Signs Height: 175.26 cm Weight: 65.771 kg ANE Physical Exam - Airway Mallampati Score: Class 2 Mouth exam: normal dental/mouth exam - Pulmonary Pulmonary: no respiratory distress - Cardiovascular Cardiovascular: irregularly irregular - ASA Status ASA Status: II ANE Anesthesia Plan Anesthesia Plan: general endotracheal anesthesia
[2017-07-23] MEDS ORDERED: MIDAZOLAM 2 MG/2 ML VIAL ONE (08:40)
[2017-07-23] MEDS ORDERED: fentaNYL 100 MCG/2 ML INJ ONE ×2 (08:46→08:52)
[2017-07-23] MEDS ORDERED: PROPOFOL 200 MG/20 ML VIAL ONE (08:52)
[2017-07-23] MEDS ORDERED: ROCURONIUM 50 MG/5 ML VIAL ONE (08:54)
[2017-07-23] MEDS ORDERED: IOPAMIDOL (ISOVUE-370) 150 ML BTL IV ONE (09:04)
[2017-07-23] MEDS ORDERED: PHENYLEPHRINE HCL 100 MCG/ML SYR ONE (09:18)
[2017-07-23] MEDS ORDERED: HEPARIN/DEXTROSE 25,000 UNIT/500 ML BAG ONE (09:20)
[2017-07-23] MEDS ORDERED: PHENYLEPHRINE 10 MG/ML SDV ONE (09:23)
[2017-07-23] MEDS ORDERED: SUGAMMADEX SODIUM 200 MG/2 ML VIAL IVP ONE (09:52)
[2017-07-23] MEDS ORDERED: epHEDrine SULFATE 10 MG/ML SYR ONE (10:03)
--- NOTE | 2017-07-23 11:08 | ECHO ---
[email or web address] [address] [address] Main: [phone] Fax: Transesophageal Echocardiography Name: MELBA GUALLPA MR#: [id number] Study Date: 07/23/2017 Study Time: 09:00 AM Date of : 1935 Age: 81 year(s) Height: ( ) Weight: ( ) BSA: Gender: Male Examination: RUSSEL Indication: Pre EP Image Quality: Contrast: Requested by: Telly Mcnulty Heart Rate: Rhythm: BP: / Procedure Staff Exercise Physiologist: Mike Williamson Reading Physician: Telly Mcnulty Requesting Provider: RUSSEL Exam Details Conclusions: Moderately reduced systolic LV function. The ejection fraction is visually estimated to be 40 %. Moderately to severely reduced right ventricular function. Spontaneous contrast in the left atrium. No thrombus in left appendage. Mild mitral valve regurgitation is present. Measurements: Chambers Valvular Assessment AV/MV Valvular Assessment TV/PV Normal Normal Normal Name Value Range Name Value Range Name Value Range Visual EF: 40 % Additional Measurements: Findings: Left Ventricle: Moderately reduced systolic LV function. The ejection fraction is visually estimated to be 40 %. The rhythm is atrial flutter. Right Ventricle: Moderately to severely reduced right ventricular function. Left Atrium: An agitated saline study was performed and was negative for intracardiac shunting. Spontaneous Patient: MELBA GUALLPA Study Date: 07/23/2017 Page 1 of 2 09:00 AM contrast in the left atrium. Left Atrial Appendage: Normal PW-Doppler flow pattern. No thrombus in left appendage. Mitral Valve: The mitral valve is normal in appearance. Mild mitral valve regurgitation is present. Aortic Valve: The aortic valve is normal in appearance and function. The aortic valve is tri-leaflet. Tricuspid Valve: The tricuspid valve is normal in appearance and function. Pericardium: No pericardial effusion. l1n (No Signature Object) Patient: MELBA GUALLPA Study Date: 07/23/2017 Page 2 of 2 09:00 AM [id number]
--- NOTE | 2017-07-23 11:29 | PDDXCAT ---
Diagnostic Cath Note - . Date: 07/23/17 Domestic Cleaner: Pricila Indication: High-risk criteria on noninvasive testing (choose option below), other High-risk criteria on non-invasive testing: stress-induced moderate-size multiple perfusion defects - Procedure Access: right groin Procedure: left heart catheterization - Materials Left Heart Cath size: 6F Left Heart Cath materials: standard multipack (JL4, JR4, pigtail) - Findings-Left Heart Catheterization LM: Normal LAD: 70% proximal at insertion of first diagonal, 70% ostial diagonal. 95% mid LCX: Small, non dominant. Small OM1. Distal 80% disease RCA: Dominant, 70% long mid lesion Complications: Patient became hypotensive during procedure. Cardioversion was done. Estimated blood loss: <50ml Closure method: manual pressure Assessment: 1. Ischemic cardiomyopathy LVEF 40%. 2. Atrial flutter/tachycardia mediated cardiomyopathy. 3. 2V CAD Plan: Case d.w. Dr. Whatley, Dr. Bunch and Dr. Campa. IC and CTS will consult with patient re revascularization options today. Discussed with his neighbor who is primary caregiver but not medical POA. If patient and Dr. Whatley opt for surgery, he should have R and L atrial maze and SILVIA exclusion. If patient and Dr. Whatley opt for multi vessel PCI, he will have atrial flutter ablation post revascularization. Patient Problems: Problems Problem Status Onset Atrial flutter with rapid ventricular response Acute
[2017-07-23] MEDS ORDERED: ONDANSETRON 4 MG/2 ML VIAL IVP PRN (11:33)
[2017-07-23] MEDS ORDERED: NITROGLYCERIN 0.4 MG BTL SL PRN (11:33)
[2017-07-23] MEDS ORDERED: ATROPINE SULFATE 1 MG/10 ML SYR IVP PRN (11:33)
[2017-07-23] MEDS ORDERED: POLYETHYLENE GLYCOL 3350 17 GM PKT PO PRN (11:35)
--- NOTE | 2017-07-23 16:47 | ECHO ---
[email or web address] [address] [address] Main: [phone] Fax: Transthoracic Echocardiogram Name: MELBA GUALLPA MR#: [id number] Study Date: 07/23/2017 Study Time: 01:58 PM Date of : 1935 Age: 81 year(s) Height: ( ) Weight: ( ) BSA: Gender: Male Examination: Limited Echo Indication: Eval LV function Image Quality: Contrast: Requested by: Telly Mcnulty BP: 114 mmHg/69 mmHg Heart Rate: Rhythm: Indication: Eval LV function Procedure Staff Insurance Premium Auditor: Marisabel Loyola Physician: Desmond Randolph Requesting Provider: Measurements: Chambers Valvular Assessment AV/MV Valvular Assessment TV/PV Normal Normal Normal Name Value Range Name Value Range Name Value Range LVEF (BP): 57 % (>=55 %) EF Range: 55-60 % Continued Measurements: Findings: Left Ventricle: Mild hypokinesis of the basal inferior wall and basal/mid inferolateral castillo. The ejection fraction is estimated to be 55-60 %. Exam Comments: Limited 2-D echo. (No Signature Object) Patient: MELBA GUALLPA Study Date: 07/23/2017 Page 1 of 1 01:58 PM [id number]
[2017-07-23] MEDS ORDERED: NON-FORMULARY NEW DRUG (Simvastatin [Zocor] 10 MG) PO SCH (18:00)
[2017-07-23] MEDS: PRAVASTATIN SODIUM 20 MG TAB PO SCH (18:49)
[2017-07-23] MEDS: METOPROLOL TARTRATE 50 MG TAB PO SCH (21:39)
[2017-07-23] MEDS: DOCUSATE SODIUM 100 MG CAP PO SCH (21:40)
[2017-07-23] MEDS: ACETAMINOPHEN 325 MG TAB PO PRN (23:59)
[2017-07-24] MEDS: DOCUSATE SODIUM 100 MG CAP PO SCH ×2 (09:32→21:17)
[2017-07-24] MEDS: METOPROLOL TARTRATE 50 MG TAB PO SCH ×2 (09:33→21:17)
--- NOTE | 2017-07-24 11:55 | GCON ---
[f rep st] CONSULTATION Corrected report DATE OF CONSULTATION: 07/23/2017 REFERRING PHYSICIAN: The patient is seen at the request of Dr. Mcnulty and Dr. Pete Whatley with the patient's permission. IMPRESSION: 1. Three-vessel disease with underlying cardiomyopathy. 2. History of atrial flutter with multiple unsuccessful cardioversions. He also carries a history in the chart of atrial fibrillation, although there is no clear documentation of that. 3. Nephrolithiasis. 4. Hyperlipidemia. 5. 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 RECOMMENDATIONS: This gentleman I spent approximately 60 minutes evaluating and counseling, as well as discussing with other physicians and his neighbor/ caregiver next door. I do believe he represents a good surgical candidate. I see no evidence of dementia, although that question was raised. This gentleman is quite clear, quite intelligent, and able to elaborate upon his current condition, his reasons for admission, and understands the alternatives as presented. Again, I saw no evidence of short or long-term memory loss and is a high-functioning individual. I would offer him surgery at a 2% risk, which includes multi-vessel bypass grafting, left atrial appendage management, and Huerta -Maze IV with dual-chamber through Huerta-Maze procedure. He will likely require pacemaker postoperatively, had some bradyarrhythmias requiring temporary pacing , and likely has underlying other conduction disorders. He is also being evaluated for PCI with triple-drug therapy, which I do believe represents some risk for intracranial issues, particularly given his history of aneurysm and intracranial bleed. He does understand that. He is interested in a full productive life. He has no desire for medical management only with a family history of living into their late 90s, and actually several family members lived to be over 100 and were fully functional. CHIEF COMPLAINT: This gentleman presented for repeat RUSSEL and cardioversion for persistent atrial flutter despite prior cardioversions. He had a noninvasive nuclear test which suggested ischemia. He underwent diagnostic left heart cath and was found to have 3-vessel disease with moderate LV dysfunction. He had no significant valvular disease. He does have some mild hypokinesis of the right ventricular free wall. On an echo actually had an ejection fraction of 55-60. PREVIOUS MEDICAL HISTORY: As stated. PREVIOUS SURGERIES: Undocumented. REVIEW OF SYSTEMS: At the present time he is entirely asymptomatic, lying in bed. SOCIAL HISTORY: He does not smoke, does not drink. 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 PHYSICAL EXAMINATION: GENERAL: A slender gentleman who appears markedly younger than his stated age. VITAL SIGNS: Blood pressure is 113/70, pulse 88, respirations 14, nonlabored. HEENT: Normocephalic. ELOY. EOMI. NECK: Without bruit, adenopathy, or thyromegaly. HEART: Rate is regular without murmur, S3, or S4. LUNGS: Clear. ABDOMEN: Soft, nontender. Bowel sounds are active. RECTAL: Deferred. GENITAL: Deferred. NEUROLOGIC: He is alert and oriented x3. Mood and affect are appropriate. He has excellent long and short-term memory upon testing. Pedal pulses are 2+ and symmetrical. No peripheral edema. LABORATORY DATA: Please see chart for lab work. /[id number]/MODL Shima acc#, 07/28/17, samanta LEGGETT
--- NOTE | 2017-07-24 15:37 | SOAPPROG ---
SOAP Progress Note Assessment/Plan: 1. A-flutter - Pt presents with a recent diagnosis of A-flutter. He is s/p DCCV on 07/23/17. Continue metoprolol and lovenox. Contemplating ablation vs surgical ablation. 2. CAD - Pt has 2VD by angiogram on 07/23/17. Continue asa, metoprolol, and pravastatin. Contemplating 2 vessel PCI vs CABG 3. CM - Pt has a history of a CM in the setting of A-flutter and CAD. He denies symptoms of CHF. Will address primary causes as outlined above. Continue metoprolol. Consider ALEJA. 4. Short term memory loss - Pt has a short term memory loss. Will obtain neurologic evaluation to help in decision process between surgery vs non- invasive approach. Subjective: No chest pain No orthopnea or PND ambulating around pod Objective: Vital Signs Temp Pulse Resp BP Pulse Ox 36.8 C 59 L 16 122/78 H 97 07/24/17 12:07 07/24/17 12:07 07/24/17 12:07 07/24/17 12:07 07/24/17 12:07 Laboratory Results 07/23/17 07:30 07/23/17 07:30 07/23/17 07/24/17 07/25/17 05:59 05:59 05:59 Intake Total 900 Balance 900 PT 14.8 SEC (12.0-15.0) 07/23/17 07:30 INR 1.16 (0.83-1.16) 07/23/17 07:30 - Time Spent With Patient Time Spent With Patient: Greater than 50% of this 45 min visit was spent discussing treatment options with patient and family. Physical Exam - Physical Exam General Appearance: alert, no apparent distress ICD10 Worksheet Patient Problems: Problems Problem Status Onset Atrial flutter with rapid ventricular response Acute
--- NOTE | 2017-07-24 16:16 | ASMTCASEMG ---
Living Arrangements What is your living Answers: Alone arrangement? Who do you live with? Type Of Residence What kind of residence do Answers: House you live in? Discharge Plan Comments Coordination Status Comments Notes: Chart reviewed, pt is a 81 y/o man admitted w/ CAD, cardiomyopathy and AFL. Pt had a heart CATH yesterday and it was determined that pt will need a surgical intervention. CM spoke w/ Dr. Bunch regarding d/c POC. Neurology consult ordered and it was determined that pt has some cognitive limitations. Pt does not have an appointed MDPOA at this time. Pt has a brother and sister in law in [place]. ROBERT spoke w/ Jaqui (P#: [phone]) and she reports that she can be the MDPOA. Jaqui reports that her is hard of hearing. Jaqui signed paperwork to be medical power of claims attorney. CM notified JUNIOR Neumann. Nel will notify providers. ROBERT to follow. Date Signed: 07/24/2017 04:15 PM Electronically Signed By:INDIGO Gray
[2017-07-24] MEDS: ENOXAPARIN 60 MG/0.6 ML SYR SC SCH (17:02)
[2017-07-24] MEDS: PRAVASTATIN SODIUM 20 MG TAB PO SCH (17:02)
--- NOTE | 2017-07-24 19:57 | GCON ---
[f rep st] CONSULTATION NEUROLOGY CONSULTATION REFERRING PHYSICIAN: Calvin Bunch MD BILLING INFORMATION: seventy total minutes on floor today in reviewing his extensive cardiac history and testing results along with discussing care with the entire Care Team for coordination of care. CHIEF COMPLAINT: Memory changes. 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 He has never been . He lives independently in his own home. The patient states he does his own bills, balances his own checks, does his own grocery shopping and cooking without problems. He states he has never left a burner on, for example. He denies ever having any bounced checks or missed bill payments. He denies any yassine episodes of getting lost or hallucinations. He denies tremors or parkinsonian type symptoms. However, he does have a couple neighbors apparently who report that they do help watch over him any he may leave a door open here and there. He does not think he has memory symptoms himself. However, other providers have noticed some memory changes. He had a speech language cognitive evaluation which showed a SLUMS score of 16/30 with problems with delayed recall, new learning, and complex problem solving. However, this objective test data occurs 1 day after getting Versed conscious sedation for cardiac catheterization and RUSSEL. He was apparently confused after the procedure from sedation. PAST MEDICAL HISTORY: Atrial flutter, newly diagnosed coronary disease, remote cerebral aneurysm rupture in the , nephrolithiasis, hyperlipidemia. ALLERGIES: No known drug allergies. SOCIAL HISTORY: Lives alone in [place]. FAMILY HISTORY: No inheritable neurologic disease. VITAL SIGNS: Blood pressure 122/78, heart rate 62, temperature 36.8. IMPRESSION/PLAN: 1. Memory changes. 2. Atrial flutter. 3. Coronary artery disease. The patient's Mental Status Exam of 16/30 on the SLUMS may not reflect his true underlying cognitive function as he got conscious sedation yesterday and may be prone to hospital delirium type changes based on his age. Certainly, this needs to be reassessed in around 2-3 months to repeat mental status testing and overall cognitive assessment. Therefore, I think it would be inaccurate to make any kind of definitive cognitive diagnosis at this specific time point. Based on collateral history, there may be some mild cognitive impairment but certainly not severe dementia enough to inhibit him living independently. From a practical standpoint, the Care Team is contacting his brother and sister- in-law for medical power of regulatory attorney to engage them into the decision making process along with the patient. I recommend the patient and the medical power of regulatory attorney are counseled in detail regarding the pros and cons of both pathways including percutaneous interventions versus open procedures. The case was discussed at great length with Dr. Bunch, nursing staff and Social Work. I have no further recommendations now. I will look forward to seeing the patient in 2-3 months as an outpatient for cognitive reassessment. Thank you for this consultation. We will continue to follow up as needed. Please do not hesitate to call with any questions or changes in neurologic status with this very pleasant patient. /[id number]/MODL MTDD
[2017-07-25] MEDS: ENOXAPARIN 60 MG/0.6 ML SYR SC SCH ×2 (04:34→16:06)
[2017-07-25] MEDS: ACETAMINOPHEN 325 MG TAB PO PRN ×2 (04:34→17:12)
[2017-07-25] MEDS: DOCUSATE SODIUM 100 MG CAP PO SCH ×2 (07:15→22:24)
[2017-07-25] MEDS: ASPIRIN 81 MG CHEWABLE TAB PO SCH (10:54)
[2017-07-25] MEDS: METOPROLOL TARTRATE 50 MG TAB PO SCH ×2 (11:01→22:24)
[2017-07-25] MEDS ORDERED: LIDOCAINE 1% 300 MG/30 ML SDV ONE (13:24)
[2017-07-25] MEDS ORDERED: IOPAMIDOL (ISOVUE-370) 150 ML BTL IV ONE ×2 (13:24→15:35)
[2017-07-25] MEDS ORDERED: MIDAZOLAM 2 MG/2 ML VIAL ONE (13:24)
[2017-07-25] MEDS ORDERED: fentaNYL 100 MCG/2 ML INJ ONE (13:24)
[2017-07-25] MEDS ORDERED: NITROGLYCERIN 1,500 MCG/15 ML VIAL MISC ONE (13:25)
--- NOTE | 2017-07-25 13:48 | SOAPPROG ---
GALI Progress Note Assessment/Plan: 1. A-flutter - Pt presents with a recent diagnosis of A-flutter. He is s/p DCCV on 07/23/17. Continue metoprolol and lovenox. Flutter ablation to follow revascularization. 2. CAD - Pt has 2VD by angiogram on 07/23/17. Reviewed treatment options including medical management, PCI, and CABG with patient, family, and care givers. Pt wishes to persue PCI. Will arrange to have this performed risks and benefits discussed. Continue asa, metoprolol, and pravastatin. 3. CM - Pt has a history of a CM in the setting of A-flutter and CAD. He denies symptoms of CHF. Will address primary causes as outlined above. Continue metoprolol. Consider ALEJA. 4. Short term memory loss - Pt has a short term memory loss. Appreciate neurology input. Subjective: No chest pain No orthopnea or PND + ambulation Objective: Vital Signs Temp Pulse Resp BP Pulse Ox 36.7 C 56 L 12 134/62 H 94 07/25/17 10:42 07/25/17 10:42 07/25/17 10:42 07/25/17 10:42 07/25/17 10:42 Laboratory Results 07/23/17 07:30 07/23/17 07:30 07/24/17 07/25/17 07/26/17 05:59 05:59 05:59 Intake Total 900 1500 Balance 900 1500 PT 14.8 SEC (12.0-15.0) 07/23/17 07:30 INR 1.16 (0.83-1.16) 07/23/17 07:30 Physical Exam - Physical Exam General Appearance: alert, no apparent distress Respiratory: lungs clear Cardiac/Chest: regular rate, rhythm Abdomen: non-tender, soft Extremities: No pedal edema ICD10 Worksheet Patient Problems: Problems Problem Status Onset Atrial flutter with rapid ventricular response Acute
[2017-07-25] MEDS ORDERED: BIVALIRUDIN 250 MG/5 ML VIAL IV ONE ×2 (14:12→15:26)
[2017-07-25] MEDS ORDERED: ADENOSINE 90 MG/30 ML VIAL IV ONE (14:22)
[2017-07-25] MEDS ORDERED: LABETALOL HCL 5 MG/ML 20 ML MDV ONE (15:18)
[2017-07-25] MEDS ORDERED: hydrALAZINE 20 MG/ML VIAL ONE (15:56)
--- NOTE | 2017-07-25 15:59 | ASMTCMCOM ---
CM Note CM Note Notes: Pt is having cath w/ stent x2 today. Pt will most likely discharge independent w/ supportive neighborhood, who is a nurse. CM available for changes. Date Signed: 07/25/2017 03:58 PM Electronically Signed By:INDIGO Gray
[2017-07-25] MEDS ORDERED: CLOPIDOGREL BISULFATE 75 MG TAB ONE (16:02)
[2017-07-25] MEDS ORDERED: LORazepam 2 MG/ML INJ IVP PRN (16:32)
[2017-07-25] MEDS ORDERED: TEMAZEPAM 15 MG CAP PO PRN (16:32)
--- NOTE | 2017-07-25 16:58 | CPEKG ---
Heart Rate: 60 RR Interval: 1000 P-R Interval: 224 QRSD Interval: 110 QT Interval: 488 QTC Interval: 488 P [place]: 72 QRS [place]: -34 T Wave [place]: -5 EKG Severity - ABNORMAL ECG - EKG Impression: SINUS RHYTHM EKG Impression: FIRST DEGREE AV BLOCK EKG Impression: LAD, CONSIDER LEFT ANTERIOR FASCICULAR BLOCK EKG Impression: LOW VOLTAGE IN FRONTAL LEADS EKG Impression: LEFT VENTRICULAR HYPERTROPHY Electronically Signed By: Telly Mcnulty 26-Jul-2017 09:12:23
--- NOTE | 2017-07-25 17:01 | CPIP ---
[f rep st] INVASIVE CARDIAC PROCEDURE DATE OF PROCEDURE: 07/25/2017 PROCEDURE PERFORMED: 1. Coronary angiography. 2. Stenting of left anterior descending coronary artery and 2nd diagonal artery via culotte techniqu e. INDICATION: 1. Class 2 angina. 2. High risk, abnormal nuclear stress test. 3. Maximally tolerated medical therapy. ACCESS: The patient was prepped and draped in sterile fashion. 1% lidocaine was used to anesthetize the right inguinal region. A 7-German introducer sheath was placed selectively into the right commo n femoral artery via modified Seldinger technique. CORONARY ANGIOGRAPHY: A 7-German EBU 3.5 catheter was advanced to the left main coronary artery and images obtained. The left main coronary artery bifurcated into an LAD and circumflex coronary arteri es. The left main coronary artery appeared free of any significant disease. The left anterior desce nding coronary artery is diffusely diseased. In the mid 1 segment, just after the takeoff of the 2nd diagonal artery, there was a single discrete 70% stenosis present. In the mid 2 segment, there is a single discrete 90% stenosis present. The second diagonal artery was a large vessel. The second di agonal artery had a proximal 70% stenosis present. PERCUTANEOUS CORONARY INTERVENTION OF THE LEFT ANTERIOR DESCENDING CORONARY ARTERY AND 2ND DIAGONAL A RTERY: A Luge wire was placed in the left anterior descending coronary artery and position verified by angiography. A 2.5 x 12 Emerge balloon was used to pre-dilate the M2 lesion. Followup angiograph y demonstrated significant residual stenosis. Several attempts were made at trying to pass a 2.5 x 1 2 Synergy stent into the M2 lesion; however, these were unsuccessful secondary to the more proximal d isease. A 2.5 x 20 Emerge balloon was used to dilate the M2 and M1 lesions. Followup angiography de monstrated significant residual stenosis. A 2.5 x 12 Synergy drug-eluting stent was then placed acro ss the M2 lesion and deployed. Followup angiography demonstrated CESAR-3 flow, no residual stenosis. A 2.5 x 20 Emerge balloon was then used to dilate the M1 and M2 lesions. Followup angiography demon strated significant residual stenosis at the M1 lesion; however, the M2 lesion had CESAR-3 flow and no residual stenosis. A 2.5 x 20 Synergy drug-eluting stent was then placed across the M1 lesion and d eployed. Followup angiography demonstrated CESAR-3 flow with some haziness at the take-off of the fir st diagonal artery. Intravascular ultrasound probe was advanced and images obtained. Intravascular ultrasound demonstrat ed an eccentric plaque of 360 degrees of calcium causing the haziness at the take-off of the second d iagonal artery. A 2.75 x 15 noncompliant balloon was then placed across the M2 lesion and deployed; followup angiography demonstrated CESAR 3 flow, no residual stenosis. A 2.75 x 12 noncompliant balloo n was then placed across the M1 lesion and deployed. Followup angiography demonstrated CESAR 3 flow, no residual stenosis. There was, however, significant plaque shifting into the 2nd diagonal artery. The ostium of the second diagonal artery had a 99% stenosis present. The Luge wire was then withdrawn, and several attempts were made at trying to pass a Luge wire into t he 2nd diagonal artery. These were unsuccessful. Several attempts were made at trying to pass a Pro water J into the 2nd diagonal artery; these, too, were unsuccessful. Several attempts were made at p assing a Computer Graphics Illustrator 50 wire into the 2nd diagonal artery. These were unsuccessful. A 1.2 x 12 Emerge bal loon would not cross into the 2nd diagonal artery and was withdrawn. A 1.25 x 10 Sprinter balloon wa s then placed in the 2nd diagonal artery and deployed. Followup angiography demonstrated significant residual stenosis and CESAR 3 flow. A 2.0 x 12 Emerge balloon was then placed in the 2nd diagonal ar bridget and deployed. Followup angiography demonstrated significant residual stenosis and CESAR 3 flow. A 2.5 x 15 Emerge balloon was then placed in the 2nd diagonal artery and deployed. Followup angiogr aphy here again demonstrated significant residual stenosis and CESAR 3 flow. A 2.5 x 16 Synergy drug- eluting stent was placed in the left anterior descending coronary artery and extending into the 2nd d iagonal artery, and was deployed. Followup angiography demonstrated CESAR 3 flow and no residual sten osis. A 2.5 x 8 Emerge balloon was placed in the proximal portion of the left anterior descending co ronary artery and deployed to appose the stent. Followup angiography here, again, demonstrated CESAR 3 flow and no residual stenosis. A Twin-Pass catheter was then advanced into the diagonal artery over the Computer Graphics Illustrator 50 wire. A Luge wire was then advanced into the 2nd diagonal artery along with the Computer Graphics Illustrator 50 wire. The Luge wire was then withdrawn and advanced into the left anterior descending coronary artery. A 2.5 x 20 balloon was the n placed in the left anterior descending coronary artery. A 2.0 x 20 balloon was then placed in the 2nd diagonal artery. Both balloons were simultaneously inflated via kissing technique. Followup ang iography demonstrated CESAR 3 flow, no residual stenosis. COMPLICATIONS: None. CONCLUSIONS: 1. Two-vessel coronary artery disease involving the left anterior descending coronary artery and the right coronary artery. 2. Status post successful stenting of the left anterior descending coronary artery and 2nd diagonal artery using culotte technique. /[id number]/MODL
[2017-07-25] MEDS: PRAVASTATIN SODIUM 20 MG TAB PO SCH (18:25)
[2017-07-26 05:17] LABS: % IMMATURE GRANULYOCYTES 0.3 % (0.0-1.1); ABSOLUTE IMMATURE GRANULOCYTES 0.02 10^3/uL (0.00-0.10); ADD DIFF? NO; ADD MORPH? NO; ADD SCAN? NO; ATYPICAL LYMPHOCYTE FLAG 0 (0-99); FRAGMENT RBC FLAG 0 (0-99); HEMATOCRIT 36.9 % (40.0-51.0); HEMOGLOBIN 12.4 g/dL (13.7-17.5); LEFT SHIFT FLG 0 (0-99); LIPEMIA HEMOLYSIS FLAG 80 (0-99); MEAN CELL HEMOGLOBIN 29.7 pg (27.9-34.1); MEAN CELL HEMOGLOBIN CONCENTR. 33.6 g/dL (32.4-36.7); MEAN CELL VOLUME 88.3 fL (81.5-99.8); MEAN PLATELET VOLUME 10.8 fL (8.7-11.7); PLATELET CLUMPS FLAG 10 (0-99); PLATELET COUNT 132 10^3/uL (150-400); RED BLOOD CELL COUNT 4.18 10^6/uL (4.40-6.38); RED CELL DISTRIBUTION WIDTH 13.7 % (11.5-15.2)
[2017-07-26 05:30] LABS: ANION GAP 8 mEq/L (8-16); CALCIUM 8.7 mg/dL (8.5-10.4); CARBON DIOXIDE 21 mEq/l (22-31); CHLORIDE 106 mEq/L (97-110); CREATININE 0.8 mg/dL (0.7-1.3); GLOMERULAR FILTRATION RATE > 60; GLUCOSE 83 mg/dL (70-100); POTASSIUM 3.7 mEq/L (3.5-5.2); SODIUM 135 mEq/L (134-144)
--- NOTE | 2017-07-26 05:38 | CPEKG ---
Heart Rate: 48 RR Interval: 1250 P-R Interval: 208 QRSD Interval: 98 QT Interval: 496 QTC Interval: 444 P [place]: 67 QRS [place]: -24 T Wave [place]: 16 EKG Severity - ABNORMAL ECG - EKG Impression: SINUS RHYTHM EKG Impression: MULTIPLE ATRIAL PREMATURE COMPLEXES EKG Impression: BORDERLINE LEFT AXIS DEVIATION Electronically Signed By: Telly Mcnulty 26-Jul-2017 09:12:09
[2017-07-26] MEDS: ENOXAPARIN 60 MG/0.6 ML SYR SC SCH ×5 (06:00→23:44)
[2017-07-26] MEDS: CLOPIDOGREL BISULFATE 75 MG TAB PO SCH (07:59)
[2017-07-26] MEDS: DOCUSATE SODIUM 100 MG CAP PO SCH ×2 (07:59→21:04)
[2017-07-26] MEDS: ASPIRIN 81 MG CHEWABLE TAB PO SCH (07:59)
[2017-07-26] MEDS: METOPROLOL TARTRATE 50 MG TAB PO SCH ×2 (08:02→21:04)
[2017-07-26] MEDS: ACETAMINOPHEN 325 MG TAB PO PRN (08:06)
--- NOTE | 2017-07-26 09:26 | PDCARPN ---
Cardiology Progress Note Chief Complaint: Fatigue Assessment/Plan: Assessment: 1. AFL 2. CAD 3. Ischemic and nonischemic cardiomyopathy Plan: 81 yr M with AFL and CAD. PCI of LAD-D1 yesterday Plan PCI of RCA tomorrow AM with skylar James. him. Will perform AFL ablation in 6-8 weeks. 07/26/17 09:23 Subjective: Feels well, no complaints Objective: Vital Signs (8 Hrs) Temp Pulse Resp BP Pulse Ox 07/26/17 07:10 36.9 C 65 16 133/78 H 95 07/26/17 03:08 36.9 C 57 L 12 122/70 H 93 Intake/Output (24 Hrs) 07/24/17 07/25/17 07/26/17 11:59 11:59 11:59 Intake Total 900 1500 1200 Output Total 1650 Balance 900 1500 -450 Intake: Oral (ml) 900 1500 750 IV Intake (ml) 450 Output: Urine (ml) 1650 Catheter 1000 Urinal 650 Other: Intake Quantity Yes Sufficient Number of Voids Toilet 1 1 1 Urinal 1 Number of Stools Toilet 2 1 Result Diagrams: 07/26/17 03:50 07/26/17 03:50 EKG: NSR with PAC Telemetry: NSR with PAC - Physical Exam Eyes: PERRL, EOMI Ears, Nose, Mouth, Throat: moist mucous membranes Cardiovascular: regular rate and rhythm, no murmurs Respiratory: clear to auscultate bilat Musculoskeletal: no muscular tenderness ICD10 Worksheet Patient Problems: Problems Problem Status Onset Atrial flutter with rapid ventricular response Acute
--- NOTE | 2017-07-26 11:53 | ASMTCMCOM ---
CM Note CM Note Notes: Reviewed chart re: d/c poc, pt's progress. Pt s/p heart cath 07/25/17; scheduled for second heart cath for stent to RCA, Jess 07/27/17 at 0900. Pt to f/u for AFL ablation in 6-8 wks. Anticipate pt will likely d/c home independently when medically stable. CM will cont to follow. Date Signed: 07/26/2017 11:53 AM Electronically Signed By:Denisse Andrew RN
[2017-07-26] MEDS: PRAVASTATIN SODIUM 20 MG TAB PO SCH (17:47)
--- NOTE | 2017-07-27 08:06 | PDPROPOC ---
Sedation Plan of Care Sedation Plan of Care: vital signs stable, mental status noted, patient educated of risks, benefits, alternatives, patient can tolerate sedation ASA Classification: ASA 2 Planned drugs: fentanyl, midazolam Mallampati Score: Class 2 Mallampati Reference Image: Patient passed 3-3-2 rule?: Yes
[2017-07-27] MEDS ORDERED: LIDOCAINE 1% 300 MG/30 ML SDV ONE (09:07)
[2017-07-27] MEDS ORDERED: VERAPAMIL 5 MG/2 ML VIAL ONE (09:08)
[2017-07-27] MEDS ORDERED: fentaNYL 100 MCG/2 ML INJ ONE (09:08)
[2017-07-27] MEDS ORDERED: IOPAMIDOL (ISOVUE-370) 150 ML BTL IV ONE (09:08)
[2017-07-27] MEDS ORDERED: HEPARIN 10,000 UNIT/10 ML MDV ONE (09:08)
[2017-07-27] MEDS ORDERED: MIDAZOLAM 2 MG/2 ML VIAL ONE (09:08)
[2017-07-27] MEDS ORDERED: BIVALIRUDIN 250 MG/5 ML VIAL IV ONE (09:09)
[2017-07-27] MEDS ORDERED: NITROGLYCERIN 1,500 MCG/15 ML VIAL MISC ONE (09:10)
[2017-07-27] MEDS: ASPIRIN 81 MG CHEWABLE TAB PO SCH (09:27)
--- NOTE | 2017-07-27 09:41 | PDCARPN ---
Cardiology Progress Note Chief Complaint: Fatigue Assessment/Plan: Assessment: 1. AFL 2. CAD 3. Ischemic and nonischemic cardiomyopathy Plan: 1. PCI to right coronary artery today 2. Continue aspirin and Plavix. Continue beta-dedrick. 3. Start Eliquis 5 mg twice daily when okay with Dr. Aris Elmore 4. My nurse will contact the patient to schedule atrial flutter ablation in the next 6-8 weeks. 07/27/17 09:40 Subjective: Offers no new complaints today. He is getting ready for coronary angiography. Time Spent With Patient: 10 minutes Objective: Vital Signs (8 Hrs) Temp Pulse Resp BP Pulse Ox 07/27/17 04:00 37.1 C 50 L 16 102/53 L 96 Intake/Output (24 Hrs) 07/25/17 07/26/17 07/27/17 11:59 11:59 11:59 Intake Total 1500 1200 Output Total 1650 Balance 1500 -450 Intake: Oral (ml) 1500 750 IV Intake (ml) 450 Output: Urine (ml) 1650 Catheter 1000 Urinal 650 Other: Intake Quantity Yes Sufficient Number of Voids Toilet 1 1 Urinal 1 1 Number of Stools Toilet 1 Result Diagrams: 07/26/17 03:50 07/26/17 03:50 Telemetry: Sinus rhythm with frequent PACs, sinus bradycardia down to 46 beats per minute ICD10 Worksheet Patient Problems: Problems Problem Status Onset Atrial flutter with rapid ventricular response Acute
[2017-07-27] MEDS ORDERED: NS 1,000 ML IV SCH (10:30)
--- NOTE | 2017-07-27 10:34 | PDDXCAT ---
Diagnostic Cath Note - . Date: 07/27/17 Cancer Registry Coordinator: Ramírez Indication: other (Atrial flutter associated with cardiomyopathy and shock. Here for complete revascularization/PCI of the right coronary) - Procedure Access: left wrist Procedure: left heart catheterization, coronary angiography, left ventriculogram - Materials Left Heart Cath size: 6F Left Heart Cath materials: JL3.5, JR4.0, pigtail - Findings-Left Heart Catheterization LM: Unobstructed LAD: Diagonal LAD stents widely patent. RCA: 85% stenosis body of the right coronary at the bend. EDP: 12 mm of mercury postprocedure LVEF: 37% Wall motion: Global hypokinesis Complications: None Estimated blood loss: <50ml Closure method: TR Band Assessment: Procedure notes: Please review computer report for details. Contrast: 160 cc. Sedation: 2 mg Versed/50 mcg fentanyl. Radiation exposure : 8.7 minutes fluoroscopy, 325 mGy. Conclusion: Widely patent site of prior stenting. 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 Successful PCI and stenting of the right coronary artery. Plan: Elective PCI of the right coronary Intervention: Procedure: PCI and stenting of the right coronary artery. Indications: 81-year-old male admitted to the hospital for atrial flutter with LV dysfunction. Diagnostic angiogram showed multivessel disease. Initial procedure complicated by shock. Completed PCI and stenting of the LAD and diagonal on Friday by my partner. Elective PCI of the right coronary to complete revascularization today in the setting of shock during procedure. I have reviewed the diagnostic angiograms performed Friday. For details of the procedure please see attached computer report After reviewing diagnostic angiograms and procedural note by my partners elected to proceed with PCI. Patient was access from the left radial artery using a 6 [place] slender sheath. Patient was anticoagulated with Angiomax. Therapeutic ACT was confirmed during the study. Using a 6 [place] JR4 guiding catheter the right coronary selectively intubated. Using a 0.014 luge wire the RCA stenosis was crossed and the wire placed in the distal vessel. Attempts at primary stenting were made with a 2.75 x 20 mm synergy stent. The stent would not cross. Pre dilatation was performed with a 2 mm balloon. The stent was appropriately placed and deployed using a single inflation. Repeat angiograms revealed the stent to be under deployed. No complications were seen proximally or distally. A 3.25 x 15 mm noncompliant balloon was used to post dilate the stent x2. Repeat angiogram showed CESAR grade 3 flow. Orthogonal view showed excellent clinical result. Wire and guiding catheter were removed. Diagnostic look at the left coronary artery was made to assure patency of prior stenting. A 6 [place] pigtail catheter was used to cross the aortic valve left ventricular angiography was performed with measurement of left ventricular end-diastolic pressure. Catheters were removed. Sheath was removed using TR band. The patient is taken to recovery for continued care. Conclusion: Successful PCI and stenting of the right coronary artery. Continue aggressive secondary prevention with dual antiplatelet therapy. With reduced LV function and atrial flutter patient will require triple therapy for at least 30 days. This would include Plavix Eliquis as well as aspirin. Increased risk of bleeding noted. Patient Problems: Problems Problem Status Onset Atrial flutter with rapid ventricular response Acute
--- NOTE | 2017-07-27 10:54 | CPEKG ---
Heart Rate: 115 RR Interval: 522 P-R Interval: 148 QRSD Interval: 84 QT Interval: 308 QTC Interval: 426 P [place]: 113 QRS [place]: -84 EKG Severity - ABNORMAL ECG - EKG Impression: slow atrial flutter with 2:1 conduction EKG Impression: LEFT ANTERIOR FASCICULAR BLOCK EKG Impression: LOW VOLTAGE IN FRONTAL LEADS EKG Impression: REPOL ABNRM SUGGESTS ISCHEMIA, DIFFUSE LEADS Electronically Signed By: Telly Mcnulty 27-Jul-2017 17:43:46
[2017-07-27] MEDS: METOPROLOL TARTRATE 50 MG TAB PO SCH ×2 (12:29→19:51)
[2017-07-27] MEDS: ACETAMINOPHEN 325 MG TAB PO PRN (13:38)
[2017-07-27] MEDS: DOCUSATE SODIUM 100 MG CAP PO SCH ×2 (13:38→19:52)
[2017-07-27] MEDS: CLOPIDOGREL BISULFATE 75 MG TAB PO SCH (13:38)
[2017-07-27] MEDS: ENOXAPARIN 60 MG/0.6 ML SYR SC SCH (16:59)
[2017-07-27] MEDS: PRAVASTATIN SODIUM 20 MG TAB PO SCH (16:59)
[2017-07-28 05:19] LABS: % IMMATURE GRANULYOCYTES 0.2 % (0.0-1.1); ABSOLUTE IMMATURE GRANULOCYTES 0.01 10^3/uL (0.00-0.10); ADD DIFF? NO; ADD MORPH? NO; ADD SCAN? NO; ATYPICAL LYMPHOCYTE FLAG 0 (0-99); FRAGMENT RBC FLAG 0 (0-99); HEMATOCRIT 41.5 % (40.0-51.0); HEMOGLOBIN 13.6 g/dL (13.7-17.5); LEFT SHIFT FLG 0 (0-99); LIPEMIA HEMOLYSIS FLAG 80 (0-99); MEAN CELL HEMOGLOBIN 29.4 pg (27.9-34.1); MEAN CELL HEMOGLOBIN CONCENTR. 32.8 g/dL (32.4-36.7); MEAN CELL VOLUME 89.6 fL (81.5-99.8); MEAN PLATELET VOLUME 10.6 fL (8.7-11.7); PLATELET CLUMPS FLAG 0 (0-99); PLATELET COUNT 134 10^3/uL (150-400); RED BLOOD CELL COUNT 4.63 10^6/uL (4.40-6.38); RED CELL DISTRIBUTION WIDTH 13.9 % (11.5-15.2)
[2017-07-28 05:40] LABS: ANION GAP 5 mEq/L (8-16); ASPARTATE AMINOTRANSFERASE 37 IU/L (17-59); BILIRUBIN,TOTAL 0.7 mg/dL (0.1-1.4); CALCIUM 8.8 mg/dL (8.5-10.4); CARBON DIOXIDE 21 mEq/l (22-31); CHLORIDE 107 mEq/L (97-110); CREATININE 0.8 mg/dL (0.7-1.3); GLOMERULAR FILTRATION RATE > 60; GLUCOSE 82 mg/dL (70-100); LACTATE DEHYDROGENASE 508 IU/L (313-618); MAGNESIUM 1.8 mg/dL (1.6-2.3); POTASSIUM 4.3 mEq/L (3.5-5.2); SODIUM 133 mEq/L (134-144)
[2017-07-28] MEDS: ENOXAPARIN 60 MG/0.6 ML SYR SC SCH ×2 (06:22→18:42)
[2017-07-28] MEDS: ACETAMINOPHEN 325 MG TAB PO PRN (08:15)
[2017-07-28] MEDS: CLOPIDOGREL BISULFATE 75 MG TAB PO SCH (08:15)
[2017-07-28] MEDS: METOPROLOL TARTRATE 50 MG TAB PO SCH ×2 (08:16→20:48)
[2017-07-28] MEDS: ASPIRIN 81 MG CHEWABLE TAB PO SCH (08:17)
[2017-07-28] MEDS: DOCUSATE SODIUM 100 MG CAP PO SCH ×2 (08:17→20:48)
--- NOTE | 2017-07-28 08:33 | CPEKG ---
Heart Rate: 136 RR Interval: 441 QRSD Interval: 84 QT Interval: 336 QTC Interval: 506 QRS [place]: -90 T Wave [place]: -88 EKG Severity - ABNORMAL ECG - EKG Impression: ATRIAL FLUTTER WITH 2:1 AV BLOCK EKG Impression: LEFT ANTERIOR FASCICULAR BLOCK EKG Impression: REPOLARIZATION ABNORMALITY, PROB RATE RELATED Electronically Signed By: Telly Mcnulty 28-Jul-2017 17:55:44
[2017-07-28] MEDS ORDERED: fentaNYL 100 MCG/2 ML INJ IVP ONE (09:31)
[2017-07-28] MEDS ORDERED: BENZOCAINE UNIT DOSE SPRAY HURRICAINE MM ONE (09:31)
[2017-07-28] MEDS ORDERED: MIDAZOLAM 2 MG/2 ML VIAL IVP ONE (09:31)
[2017-07-28] MEDS ORDERED: NS 500 ML IV ONE (09:31)
[2017-07-28] MEDS ORDERED: AMIODARONE HCL 200 MG TAB PO SCH (09:45)
[2017-07-28 11:05] LABS: INR 1.24 (0.83-1.16); PROTIME(PATIENT) 15.6 SEC (12.0-15.0)
[2017-07-28 11:15] LABS: APTT 38.4 SEC (23.0-38.0)
--- NOTE | 2017-07-28 11:25 | PDCARPN ---
Cardiology Progress Note Chief Complaint: Palpitations Assessment/Plan: Assessment: 1. AFL 2. CAD 3. Ischemic and nonischemic cardiomyopathy Plan: 1. recurrent atrial flutter. Patient has had 3 diagnostic and interventional procedures over the last 4 days. Given his advanced age and cardiomyopathy, I do not want to perform an ablation procedure at this time. We will place him on amiodarone and perform RUSSEL guided cardioversion later this afternoon, patient had breakfast at 9:00 a.m.. 2. diagnostic coronary angiography and status post staged percutaneous intervention, lad, LAD diagonal bifurcation and right coronary artery 3. Have discussed this plan with patient's primary frame builder Dr. Pete Whatley. 07/28/17 11:23 Subjective: Feels palpitations. No CP. No syncope. Time Spent With Patient: 10 minutes Objective: Vital Signs (8 Hrs) Temp Pulse Resp BP Pulse Ox 07/28/17 11:06 36.9 C 113 H 16 80/52 L 98 07/28/17 07:22 36.9 C 132 H 18 103/79 93 07/28/17 04:00 37.1 C 125 H 15 108/77 97 Intake/Output (24 Hrs) 07/26/17 07/27/17 07/28/17 11:59 11:59 11:59 Intake Total 0885 796 2339 Output Total 1650 1770 Balance -450 250 -740 Intake: Oral (ml) 750 1030 IV Intake (ml) 450 250 Output: Urine (ml) 1650 1770 Catheter 1000 Urinal 650 1770 Other: Intake Quantity Yes Sufficient Number of Voids Toilet 1 Urinal 1 1 1 Result Diagrams: 07/28/17 03:41 07/28/17 03:41 Telemetry: Atrial flutter with 2-1 conduction to the ventricles, ventricular rate was 130 beats per minute ICD10 Worksheet Patient Problems: Problems Problem Status Onset Atrial flutter with rapid ventricular response Acute
[2017-07-28] MEDS ORDERED: BUPIVACAINE 0.5% 30 ML SDV ONE (15:55)
[2017-07-28] MEDS ORDERED: LIDOCAINE 1% 300 MG/30 ML SDV ONE (15:55)
[2017-07-28] MEDS ORDERED: ISOPROTERENOL HCL/D5W 0.2 MG/50 ML BAG IV ONE (15:55)
[2017-07-28] MEDS ORDERED: HEPARIN 10,000 UNIT/10 ML MDV ONE (15:55)
--- NOTE | 2017-07-28 16:12 | PDANEPAE ---
ANE History of Present Illness Patient presents for a-flutter ablation ANE Past Medical History - Cardiovascular History Hx Hypertension: No Hx Arrhythmias: Yes Hx Chest Pain: No Hx Coronary Artery / Peripheral Vascular Disease: Yes Hx CHF / Valvular Disease: No Hx Palpitations: Yes - Pulmonary History Hx COPD: No Hx Asthma/Reactive Airway Disease: No Hx Recent Upper Respiratory Infection: No Hx Oxygen in Use at Home: No Hx Sleep Apnea: No Sleep Apnea Screening Result - Last Documented: Negative - Endocrine History Hx Diabetes: No - Renal History Hx Renal Disorders: Yes Renal History Comment: kidney stones - Liver History Hx Hepatic Disorders: No - Neurological & Psychiatric Hx Neurological / Psychiatric History Comment: cva in past - Chronic Pain History Chronic Pain: No ANE Review of Systems Review of Systems: - Exercise capacity METS (RN): 4 METS ANE Patient History - Allergies Allergies/Adverse Reactions: No Known Allergies Allergy (Verified 07/08/17 07:54) - Home Medications Home medications: home medication list seen and reviewed Home Medications: Simvastatin [Zocor] 10 mg PO DAILY18 #0 07/01/16 [Last Taken 1 Day Ago ~07/22/17 ] Rivaroxaban [Xarelto 10mg (*)] 20 mg PO DAILY18 07/08/17 [Last Taken 3 Days Ago ~07/20/17] Docusate Sodium [Colace 100 MG (*)] 100 mg PO BID 07/22/17 [Last Taken 1 Day Ago ~07/22/17] Enoxaparin [Lovenox 60 MG (*)] 60 mg SQ BID 07/22/17 [Last Taken 1 Day Ago ~01/03] Polyethylene Glycol 3350 [Miralax 17 gm (*)] 17 gm PO DAILY PRN 07/22/17 [Last Taken 1 Day Ago ~07/22/17] - NPO status NPO Since - Liquids (Date): 07/28/17 NPO Since - Liquids (Time): 09:00 NPO Since - Solids (Date): 07/28/17 NPO Since - Solids (Time): 09:00 - Anes Hx Anes Hx: no prior problems - Smoking Hx Smoking Status: Former smoker ANE Labs/Vital Signs - Labs Result Diagrams: 07/28/17 03:41 07/28/17 03:41 - Vital Signs Blood Pressure: 92/73 Heart Rate: 130 Respiratory Rate: 16 O2 Sat (%): 99 Height: 175.26 cm Weight: 65.771 kg ANE Physical Exam - Airway Neck exam: decreased ROM Mallampati Score: Class 2 Mouth exam: normal dental/mouth exam - Pulmonary Pulmonary: no respiratory distress - Cardiovascular Cardiovascular: tachycardia - ASA Status ASA Status: III ANE Anesthesia Plan Anesthesia Plan: general endotracheal anesthesia (rba discussed)
[2017-07-28] MEDS ORDERED: fentaNYL 100 MCG/2 ML INJ ONE (16:16)
[2017-07-28] MEDS ORDERED: LIDOCAINE 2% 5 ML SDV ONE (16:16)
[2017-07-28] MEDS ORDERED: PROPOFOL 200 MG/20 ML VIAL ONE (16:16)
--- NOTE | 2017-07-28 16:21 | PDHPUP ---
History & Physical Update H&P update statement: This history and physical update is based on an assessment of the patient which was completed after admission or registration (within 24 hours), but prior to the surgery/procedure. H&P update: H&P reviewed & patient examined, no change in patient's condition since H&P completed (Pt has difficult to control HR with tachycardia mediated CMP, after d.w. patient he agrees to proceed with AFL ablation rather than CV which will be done today.)
[2017-07-28] MEDS ORDERED: ROCURONIUM 50 MG/5 ML VIAL ONE (16:23)
[2017-07-28] MEDS ORDERED: SUCCINYLCHOLINE CHLORIDE*ANESTHESIA ONLY*200 MG/10 ML SYR IVP ONE (16:25)
[2017-07-28] MEDS ORDERED: PHENYLEPHRINE HCL 100 MCG/ML SYR ONE ×2 (16:46→17:05)
[2017-07-28] MEDS ORDERED: ONDANSETRON 4 MG/2 ML VIAL ONE (17:26)
[2017-07-28] MEDS ORDERED: SUGAMMADEX SODIUM 200 MG/2 ML VIAL IVP ONE (17:26)
[2017-07-28] MEDS ORDERED: DEXAMETHASONE 4 MG/ML VIAL ONE (17:26)
[2017-07-28] MEDS ORDERED: PROTAMINE SULFATE 50 MG/5 ML VIAL IVP ONE (17:29)
--- NOTE | 2017-07-28 17:45 | EPPROC ---
Electrophysiology Procedure Note: ELECTROPHYSIOLOGIC STUDY AND CATHETER MEDIATED ABLATION FOR SUBEUSTACHIAN ISTHMUS DEPENDENT COUNTERCLOCKWISE ATRIAL FLUTTER: INDICATION: Recurrent atrial flutter Cardiomyopathy ischemic and non ischemic PROCEDURES PERFORMED: 20415-08 EP evaluation with RA/RV/LA pace/record, with arrhythmia induction 25385-89 EP evaluation with RA/RV pace record, insert/reposition catheter, with arrhythmia induction 59986 SVT ablation 99047 3D mapping Fluoroscopy Catheters & Anesthesia: The patient arrived in the Electrophysiology Laboratory in the fasting state. The right clavicular region, right groin, and left groin area were prepped and draped in the usual sterile manner. Anesthesiologist administered general anesthesia. Appropriate non-invasive blood pressure, pulse oximetry and end- tidal CO2 monitoring was established. All catheters were placed percutaneously using the modified Seldinger technique , and advanced into position under fluoroscopic guidance. One #7 [place] deflectable octapolar electrode catheter was advanced to the His-bundle position via the left femoral vein and then was placed via the left femoral vein into the coronary sinus. One # 7 [place] Halo catheter was inserted through the right femoral vein and was placed at the tricuspid annulus. Heparin was administered to keep ACT > 250 seconds. Programmed stimulation was performed from the right atrium, coronary sinus ( left atrium) and right ventricle. Parahisian pacing demonstrated all retrograde conduction over the AV node. On arrival to the Electrophysiology Laboratory the patient was in atrial flutter , CL 260 ms. Entrainment mapping from lateral TA, septal TA, proximal CS and distal CS confirmed cavotricuspid isthmus dependent atrial flutter. In preparation for ablation of typical atrial flutter, a high-resolution 3D (3 dimensional) Carto electroanatomical map of the sub-Eustachian isthmus and right atrium was obtained during AFL. For ablation of typical atrial flutter, one Agilis sheath was placed in the right atrium. A #8 [place] deflectable quadrapolar electrode catheter (2mm-5mm- 2mm spacing) with 8 mm irrigated tip electrode and location sensor for the VisualOn mapping system was inserted in the long sheath and advanced to the right atrium. Radiofrequency applications were applied between the tricuspid annulus at 0630 oclock as seen in the ERIC view and the inferior vena cava. This achieved termination of AFL and conduction block across the isthmus. Following ablation of the atrial flutter, programmed atrial stimulation was performed . No atrial arrhythmias were inducible post ablation. Post ablation, a high-resolution electroanatomical map of the sub-Eustachian isthmus was obtained during pacing of the posterolateral coronary sinus. This confirmed conduction block across the sub-Eustachian isthmus. Bidirectional block was also confirmed by pacing. The catheters were removed. Long sheath was changed to short sheath. Protamine was administered. The patient was transferred to the cardiovascular holding area in stable condition. Vascular access sheaths were removed in the holding area. There were no apparent complications. CONCLUSIONS: 1. 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 2. Successful catheter mediated ablation of cavotricuspid isthmus achieving bi -directional conduction block across cavotricuspid isthmus. 3. No atrial arrhythmias inducible post ablation. 4. No apparent complications. Patient Problems: Problems Problem Status Onset Atrial flutter with rapid ventricular response Acute
--- NOTE | 2017-07-28 18:30 | CPEKG ---
Heart Rate: 61 RR Interval: 984 P-R Interval: 216 QRSD Interval: 90 QT Interval: 456 QTC Interval: 460 P [place]: 65 QRS [place]: -26 T Wave [place]: -23 EKG Severity - BORDERLINE ECG - EKG Impression: SINUS RHYTHM EKG Impression: BORDERLINE LEFT AXIS DEVIATION EKG Impression: LOW VOLTAGE IN FRONTAL LEADS EKG Impression: BORDERLINE T ABNORMALITIES, INFERIOR LEADS Electronically Signed By: Telly Mcnulty 29-Jul-2017 20:14:17
[2017-07-28] MEDS: PRAVASTATIN SODIUM 20 MG TAB PO SCH (20:49)
[2017-07-29 04:12] LABS: % IMMATURE GRANULYOCYTES 0.4 % (0.0-1.1); ABSOLUTE IMMATURE GRANULOCYTES 0.02 10^3/uL (0.00-0.10); ADD DIFF? NO; ADD MORPH? NO; ADD SCAN? NO; ATYPICAL LYMPHOCYTE FLAG 0 (0-99); FRAGMENT RBC FLAG 0 (0-99); HEMATOCRIT 37.5 % (40.0-51.0); HEMOGLOBIN 12.3 g/dL (13.7-17.5); LEFT SHIFT FLG 0 (0-99); LIPEMIA HEMOLYSIS FLAG 80 (0-99); MEAN CELL HEMOGLOBIN 29.8 pg (27.9-34.1); MEAN CELL HEMOGLOBIN CONCENTR. 32.8 g/dL (32.4-36.7); MEAN CELL VOLUME 90.8 fL (81.5-99.8); MEAN PLATELET VOLUME 10.4 fL (8.7-11.7); PLATELET CLUMPS FLAG 0 (0-99); PLATELET COUNT 140 10^3/uL (150-400); RED BLOOD CELL COUNT 4.13 10^6/uL (4.40-6.38)
[2017-07-29 04:20] LABS: INR 1.19 (0.83-1.16); PROTIME(PATIENT) 15.1 SEC (12.0-15.0)
[2017-07-29 04:30] LABS: ANION GAP 8 mEq/L (8-16); CALCIUM 8.5 mg/dL (8.5-10.4); CARBON DIOXIDE 20 mEq/l (22-31); CHLORIDE 108 mEq/L (97-110); CREATININE 0.9 mg/dL (0.7-1.3); GLOMERULAR FILTRATION RATE > 60; GLUCOSE 138 mg/dL (70-100); MAGNESIUM 1.7 mg/dL (1.6-2.3); POTASSIUM 5.1 mEq/L (3.5-5.2); SODIUM 136 mEq/L (134-144)
[2017-07-29 04:38] LABS: CREATINE KINASE-MB FRACTION 2.14 ng/mL (0.00-3.19)
--- NOTE | 2017-07-29 07:31 | POSTANESTH ---
Post Anesthetic Evaluation Cardiovascular Status: Normal, Stable Respiratory Status: Normal, Stable Level of Consciousness/Mental Status: Alert and Oriented Pain Control: Adequate, Prn Tx Ordered Nausea/Vomiting Control: Adequate, Prn Tx Ordered Complications Possibly Related to Anesthesia: None Noted
[2017-07-29 08:14] VITALS: BP 109/56; PULSE 56; RESP 12; TEMP 97.5; O2SAT 96
--- NOTE | 2017-07-29 08:52 | CPEKG ---
Heart Rate: 51 RR Interval: 1176 P-R Interval: 216 QRSD Interval: 96 QT Interval: 484 QTC Interval: 446 P [place]: 74 QRS [place]: -15 T Wave [place]: -21 EKG Severity - BORDERLINE ECG - EKG Impression: SINUS RHYTHM EKG Impression: ATRIAL PREMATURE COMPLEX EKG Impression: BORDERLINE LEFT AXIS DEVIATION EKG Impression: LOW VOLTAGE IN FRONTAL LEADS EKG Impression: BORDERLINE T ABNORMALITIES, INFERIOR LEADS Electronically Signed By: Telly Mcnulty 29-Jul-2017 20:14:12
[2017-07-29] MEDS: METOPROLOL TARTRATE 50 MG TAB PO SCH (09:09)
[2017-07-29] MEDS: DOCUSATE SODIUM 100 MG CAP PO SCH (09:10)
[2017-07-29] MEDS: ASPIRIN 81 MG CHEWABLE TAB PO SCH (09:10)
[2017-07-29] MEDS: CLOPIDOGREL BISULFATE 75 MG TAB PO SCH (09:10)
--- NOTE | 2017-07-29 11:36 | ASMTCMCOM ---
CM Note CM Note Notes: 07/29/2017 Case Management Note Met w/pt. Pt in agreement of need for home services. Discussed several options, pt chose [facility]. Faxed referral requesting RN PT OT SLT and MAYO, notified via phone from [facility] that pt is accepted. Faxed final d/c orders. Services to start tomorrow. Notified neighbor Rose [phone] at pt request of d/c plan. Rose to pickling drum operator pt and transport home. Rose is RN at [facility] and plans to monitor meds until home care services start tomorrow. Date Signed: 07/29/2017 11:36 AM Electronically Signed By:Kaley Mendes RN
--- NOTE | 2017-07-29 11:36 | PDIAF ---
- Diagnosis Diagnosis: CAD, cardiomyopathy with systolic CHF, Aflutter, short term memory loss Code Status: Full Code - Medication Management Discharge Medications: Medications to Continue on Transfer Simvastatin [Zocor] 10 mg PO DAILY18 #0 07/01/16 [Last Taken 1 Day Ago ~07/22/17 ] Rivaroxaban [Xarelto 10mg (*)] 20 mg PO DAILY18 07/08/17 [Last Taken 3 Days Ago ~07/20/17] Metoprolol Tartrate [Lopressor 50 mg (*)] 75 mg PO BID #120 tab 07/10/17 [Last Taken 1 Day Ago ~07/22/17] Docusate Sodium [Colace 100 MG (*)] 100 mg PO BID 07/22/17 [Last Taken 1 Day Ago ~07/22/17] Polyethylene Glycol 3350 [Miralax 17 gm (*)] 17 gm PO DAILY PRN 07/22/17 [Last Taken 1 Day Ago ~07/22/17] Acetaminophen [Tylenol 325mg (*)] 650 mg PO Q4HRS PRN tab 07/29/17 [Last Taken Unknown] Aspirin [Aspirin 81mg (*)] 81 mg PO DAILY #0 tab.chew 07/29/17 [Last Taken Unknown] Clopidogrel Bisulfate [Plavix (*)] 75 mg PO DAILY #30 tab 07/29/17 [Last Taken Unknown] Discharge Medications: Refer to the Discharge Home Medication list for PRN reason. - Orders Services needed: Home Care, Occupational Therapy, Speech Language Pathologist Home Care Face to Face: I certify that this patient was under my care and that I had the required [id number] encounter meeting the encounter requirements on the discharge day. My findings support the fact that the patient is homebound as defined in Home Care Face to Face Continued: CMS Chapter 7 Medicare Benefits Manual 30.1.1 , The condition of the patient is such that there exists a normal inability to leave home and consequently, leaving home would require a considerable and taxing effort. Diet Recommendation: cardiac -low fat low salt - Follow Up Care Current Providers and Referrals: Fer Shaikh MD [Primary Care Provider] - Telly Mcnulty MD [Medical Doctor] - (Follow up 08/21/17 at 10:00 at [facility]) Calvin Bunch MD [Medical Doctor] - 08/13/17 2:00 pm (This is at our [place] office: [facility], [address], [place] [address])
--- NOTE | 2017-07-29 12:39 | GDS ---
[f rep st] DISCHARGE SUMMARY DISCHARGE DIAGNOSES: 1. 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 2. Persistent atrial flutter, status post cardioversion with return of aflutter prior to discharge. Atrial flutter ablation on 07/28/2017. 3. Obstructive coronary artery disease involving left anterior descending, diagonal, and right coron pietro artery, status post staged interventions to those vessels after surgical consultation. 4. 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 5. Remote cerebral aneurysm rupture in the . 6. History of nephrolithiasis. 7. History of treated dyslipidemia. CONSULTATIONS: 1. Dr. Campa with Cardiothoracic Surgery. 2. Dr. Noble Donahue with Neurology. PROCEDURES: 1. 07/23/2017: Echocardiogram which showed mild hypokinesis of the basal inferior wall and basal mi d inferolateral castillo with ejection fraction of 55% to 60%. 2. 07/23/2017: RUSSEL which showed moderately reduced LV systolic function with an EF of 40%. Moderat e-to-severe reduced RV function. Mild mitral regurgitation. 3. 07/23/2017: Diagnostic left heart catheterization with Dr. Mcnulty, which showed normal left main, 7 0% proximal LAD disease at the insertion of diagonal, 70% ostial diagonal disease, 95% mid LAD diseas e, circumflex with distal 80% disease, RCA with a long 70% stenosis. Ejection fraction measured at 4 0%. 4. 07/23/2017: Carotid Dopplers which showed minimal bilateral carotid plaquing. 5. 07/25/2017: PTCA and stenting to the LAD and 2nd diagonal artery via culotte technique. 6. 07/27/2017: PCI and stenting of the right coronary artery. LVEF of 37%. 7. 07/28/2017: Cavotricuspid is dependent counterclockwise atrial flutter. Catheter-mediated ablat ion. BRIEF HISTORY: Please see dictated H and P from our office for complete details. In brief, the patient is an 81-year-old male with a past medical history of treated dyslipidemia who was referred after he was found to be in atrial flutter. An echo was obtained which showed reduced e jection fraction of 35%. The patient was seen by Dr. Mcnulty, and advised on atrial flutter ablation. G iven his cardiomyopathy, he had a diagnostic left heart catheterization and was found to have obstruc tive disease in his LAD and diagonal vessels. HOSPITAL COURSE: By problem: 1. Two-vessel coronary artery disease. He was seen by CT Surgery and found to be an adequate candid ate for bypass. He was also noted to be quite confused post left heart catheterization, and his SLUM S score was decreased at 16/30. He therefore proceeded to staged intervention, first with his LAD an d then later for his right coronary artery. 2. Atrial flutter. He was to have cardioversion after being found in atrial flutter. He proceeded to ablation day prior to discharge. RESULTS PENDING: None. DIET: Cardiac. PHYSICAL EXAMINATION: VITAL SIGNS: On day of discharge: Blood pressure 109/56, heart rate 56, resp irations 12, O2 saturation 96% on room air. Temp of 97.5 degrees Fahrenheit. GENERAL: He is a very pleasant male in no apparent distress. EYES: PERRL. HEART: Regular rate and rhythm. LUNGS: Bal ar. GROIN: Bilateral groin sites are without bruit and no significant ecchymosis. LEFT WRIST SITE: Without tenderness. Radial pulses strong, 2+. LABORATORY DATA: BMP with sodium 136, potassium 5.1, chloride 108, CO2 of 20, BUN 21, creatinine 0.9 , glucose 138. Troponin 0.42. CBC with WBC 5.32, hemoglobin 12.3, hematocrit 37.5, platelet count of 140. 12-lead ECG shows sinus bradycardia with a first-degree AV block. DISCHARGE INSTRUCTIONS: 1. Follow up with Dr. Mcnulty as scheduled. 2. Follow up with Dr. Bunch this month. 3. Groin precautions reviewed at length. 4. OT recommends home OT. He will also be enrolled for home speech language pathology and home nurs ing followup. Greater than 30 minutes was spent on discharge and coordination of care. /[id number]/MODL
--- NOTE | 2017-07-29 13:29 | ECHO ---
[email or web address] [address] Main: [phone] Fax: Transthoracic Echocardiogram Name: MELBA GUALLPA MR#: [id number] Study Date: 07/29/2017 Study Time: 09:47 AM Date of : 1935 Age: 81 year(s) Height: 175.3 cm (69 in.) Weight: 65.77 kg (145 lb.) BSA: 1.8 m2 Gender: Male Examination: Echo Indication: F/U EP study Image Quality: Adequate Contrast: Requested by: Telly Mcnulty BP: 109 mmHg/56 mmHg Heart Rate: Rhythm: Indication: F/U EP study Procedure Staff Fast Brim Pouncer: Lisbeth Moise Reading Physician: Kyle Agudelo Requesting Provider: Telly Mcnulty Conclusions: Normal size left ventricle. Low normal left ventricular systolic function. EF is 53 %. Mild basal inferior and inferoseptal hypokinesis. The left atrium is severely dilated. The right atrium is mildly to moderately dilated. There is mild thickening of the mitral valve leaflets. There are redundant mitral valve chordea some with independent motion; cannot rule out vegetation. Mild mitral valve regurgitation is present. Mild aortic valve regurgitation is present. Moderate tricuspid regurgitation is present. No pericardial effusion. Measurements: Chambers Valvular Assessment AV/MV Valvular Assessment TV/PV Normal Normal Normal Name Value Range Name Value Range Name Value Range Ao Lucinda (2D): 3.2 cm (1.4 cm-2.6 AV Vmax: 1.25 m/s (1 m/s-1.7 TR Vmax: 2.69 mm/s ( - ) cm) m/s) TR PGmax: 29 mmHg ( - ) IVSd (2D): 1.3 cm (0.6 cm-1.1 AV maxP mmHg ( - ) syst. PAP: 39 mmHg ( - ) cm) AR (PHT): 615 ms ( - ) PV Vmax: 0.70 m/s (0.6 m/s-0.9 LVDd (2D): 4.1 cm (4.2 cm-5.9 MV E Vmax: 0.68 m/s ( - ) m/s) cm) MV A Vmax: 0.32 m/s ( - ) PV PGmax: 2 mmHg ( - ) LVDs (2D): 3.0 cm (2.1 cm-4 MV E/A: 2.12 ( - ) cm) LVPWd (2D): 0.9 cm (0.6 cm-1 cm) LVOTd 2.2 cm 2.2 cm mm LVEF (BP): 53 % (>=55 %) Patient: MELBA GUALLPA Study Date: 07/29/2017 Page 1 of 2 09:47 AM RVDd(2D): 4.3 cm (1.9 cm-3.8 cmmm) Continued Measurements: Chambers Valvular Assessment AV/MV Valvular Assessment TV/PV Name Value Name Value Name Value LADs Lon.3 cm MV DecTime: 338 m/s CVP (est.): 10 mmHg LA Area: 26.4 cm2 MV E' Septal: 0.06 m/s LA Volume: 98 ml MV E/E' Septal: 11.60 LA Volume Index: 54.4 ml/m2 MV E/E' Lateral: 11.30 TAPSE: 2.1 cm MR Vena Contracta: 0.4 cm RA Area: 24.0 cm2 AR Vmax: 3.86 cm/s Additional Vessels Name Value Ao Ascendin.3 cm Findings: Left Ventricle: Normal size left ventricle. No LV hypertrophy. Mild sigmoid septal thickening. Low normal left ventricular systolic function. EF is 53 %. Mild basal inferior and inferoseptal hypokinesis. Right Ventricle: Mildly dilated right ventricle. Normal RV function. Left Atrium: The left atrium is severely dilated. Right Atrium: The right atrium is mildly to moderately dilated. Mitral Valve: There is mild thickening of the mitral valve leaflets. There are redundant mitral valve chordea some with independent motion; cannot rule out vegetation. Mild mitral valve regurgitation is present. Aortic Valve: The aortic valve is tri-leaflet. Mild aortic valve regurgitation is present. Tricuspid Valve: The tricuspid valve appears normal. Redundant chordea some with independent motion; cannot rule out vegetation. Moderate tricuspid regurgitation is present. The pulmonary artery pressure is mildly increased. Pulmonic Valve: The pulmonic valve is normal in appearance and function. Trivial to mild pulmonic valve regurgitation. Aorta: Normal size aortic root measuring 3.2 cm. Normal size ascending aorta measuring 3.3 cm. IVC: The IVC is dilated. There is no thrombus in the IVC. There is greater linda 50% respiratory excursion. Pericardium: No pericardial effusion. (No Signature Object) Patient: MELBA GUALLPA Study Date: 07/29/2017 Page 2 of 2 09:47 AM [id number]
--- NOTE | 2017-07-29 16:37 | ASDISCHSUM ---
Discharge Information Plan Status:Home with Home Health Medically Cleared to Leave:07/29/2017 Discharge Date:07/29/2017 03:04 PM CM D/C Disposition:Home Health Service ADT D/C Disposition:Home Health Service Projected Discharge Date:07/29/2017 11:00 AM Transportation at D/C:Friend Discharge Delay Reason: Follow-Up Date:07/29/2017 11:00 AM Discharge Slot: Final Diagnosis: Placement Information Referral Type:*Home Health Care Services Referral ID:[facility]-[id number] Provider Name:[facility] Care Address 1:[address] [address] Address 2: City:[place] Selection Factors: State:[place] Patient Contact Information Contact Name:SHAYLEE Relationship:Friend Address: Work Phone: [facility]:[place] Alternate Phone: [facility]/Zip Code:[place] Email: Financial Information Financial Class: Primary Plan Desc:MEDICARE INPATIENT Primary Plan Number:[id number] Secondary Plan Desc:[place] [facility] Secondary Plan Number:[id number] Assessment Information [facility] Initial CM Assessment Living Arrangements What is your living Answers: Alone arrangement? Who do you live with? Type Of Residence What kind of residence do Answers: House you live in? Discharge Plan Comments Coordination Status Comments Notes: Chart reviewed, pt is a 81 y/o man admitted w/ CAD, cardiomyopathy and AFL. Pt had a heart CATH yesterday and it was determined that pt will need a surgical intervention. ROBERT spoke w/ Dr. Bunch regarding d/c POC. Neurology consult ordered and it was determined that pt has some cognitive limitations. Pt does not have an appointed MDPOA at this time. Pt has a brother and sister in law in [place]. ROBERT spoke w/ Jaqui (P#: [phone]) and she reports that she can be the MDPOA. Jaqui reports that her is hard of hearing. Jaqui signed paperwork to be medical power of automatic line set up mechanic. ROBERT notified JUNIOR Neumann. Nel will notify providers. CM to follow. Date Signed: 07/24/2017 04:15 PM Electronically Signed By:INDIGO Gray [facility] CM Progress Note CM Note CM Note Notes: Pt is having cath w/ stent x2 today. Pt will most likely discharge independent w/ supportive neighborhood, who is a nurse. CM available for changes. Date Signed: 07/25/2017 03:58 PM Electronically Signed By:INDIGO Gray [facility] CM Progress Note CM Note CM Note Notes: Reviewed chart re: d/c poc, pt's progress. Pt s/p heart cath 07/25/17; scheduled for second heart cath for stent to RCA, Jess 07/27/17 at 0900. Pt to f/u for AFL ablation in 6-8 wks. Anticipate pt will likely d/c home independently when medically stable. CM will cont to follow. Date Signed: 07/26/2017 11:53 AM Electronically Signed By:Denisse Andrew RN [facility] CM Progress Note CM Note CM Note Notes: 07/29/2017 Case Management Note Met w/pt. Pt in agreement of need for home services. Discussed several options, pt chose [facility]. Faxed referral requesting RN PT OT RACHELL and MAYO, notified via phone from [facility] that pt is accepted. Faxed final d/c orders. Services to start tomorrow. Notified gume Rose [phone] at pt request of d/c plan. Rose to picker tender pt and transport home. Rose is RN at [facility] and plans to monitor meds until home care services start tomorrow. Date Signed: 07/29/2017 11:36 AM Electronically Signed By:Kaley Mendes RN Intervention Information Intervention Type:*IM-Signed Date of Service:07/29/2017 12:08 PM Patient Type:Inpatient Staff Member:Jeannine Jennings Hours: Discipline: Severity: Comment:
[2017-07-29] MEDS ORDERED: RIVAROXABAN 20 MG TAB PO SCH (18:00)
== END 2017-07-29 15:04 | disposition home health service (06) | DRG 274 ==
LOC: FCATH 06:58 → F2W 11:33
PROVIDERS: ADMIT Internal Medicine Cardiovascular Disease; ATTEND Internal Medicine Cardiovascular Disease
PROC: 5A2204Z Restoration of Cardiac Rhythm, Single (ICD-10-PCS; 2017-07-23)
PROC: B2111ZZ Fluoroscopy of Multiple Coronary Arteries using Low Osmolar Contrast (ICD-10-PCS; 2017-07-23)
PROC: 4A023N7 Measurement of Cardiac Sampling and Pressure, Left Heart, Percutaneous Approach (ICD-10-PCS; 2017-07-23)
PROC: 027134Z Dilation of Coronary Artery, Two Arteries with Drug-eluting Intraluminal Device, Percutaneous Approach (ICD-10-PCS; 2017-07-25)
PROC: 027034Z Dilation of Coronary Artery, One Artery with Drug-eluting Intraluminal Device, Percutaneous Approach (ICD-10-PCS; 2017-07-27)
PROC: 4A023N7 Measurement of Cardiac Sampling and Pressure, Left Heart, Percutaneous Approach (ICD-10-PCS; 2017-07-27)
PROC: B2111ZZ Fluoroscopy of Multiple Coronary Arteries using Low Osmolar Contrast (ICD-10-PCS; 2017-07-27)
PROC: B2151ZZ Fluoroscopy of Left Heart using Low Osmolar Contrast (ICD-10-PCS; 2017-07-27)
PROC: 02583ZZ Destruction of Conduction Mechanism, Percutaneous Approach (ICD-10-PCS; principal; 2017-07-28)
PROC: 4A023FZ Measurement of Cardiac Rhythm, Percutaneous Approach (ICD-10-PCS; principal; 2017-07-28)
PROC: 02K83ZZ Map Conduction Mechanism, Percutaneous Approach (ICD-10-PCS; principal; 2017-07-28)
PROC: 3E053KZ Introduction of Other Diagnostic Substance into Peripheral Artery, Percutaneous Approach (ICD-10-PCS; principal; 2017-07-28)
DX: I48.92 Unspecified atrial flutter (principal); I25.119 Atherosclerotic heart disease of native coronary artery with unspecified angina pectoris; I42.8 Other cardiomyopathies; I50.20 Unspecified systolic (congestive) heart failure; I95.9 Hypotension, unspecified; R41.3 Other amnesia; E78.5 Hyperlipidemia, unspecified
CPT/HCPCS: 92507-GN; 92523-GN; 97161-GP; 97165-GO; C1725; C1731; C1732; C1753; C1766; C1769; C1874; C1887; C9600; C9601; G8978-GP-CI; G8979-GP-CI; G8980-GP-CI; G8987-GO-CI; G8988-GO-CI; G9168-GN-CK; G9169-GN-CK; J0153; J0330; J0360; J0461; J0583; J1100; J1644; J1650; J2250; J2370; J2405; J2704; J2720; J3010; J3490; Q9967

== ENCOUNTER → 2017-08-21 | Outpatient (CLI) | payer OTHER, BC | LOC: CIMAGING 10:51 | PROVIDERS: ATTEND Internal Medicine Cardiovascular Disease | DX: Z09 Encounter for follow-up examination after completed treatment for conditions other than malignant neoplasm (principal); I48.92 Unspecified atrial flutter; Z95.5 Presence of coronary angioplasty implant and graft ==

== ENCOUNTER 2017-10-24 11:27 | Emergency (ER) | payer OTHER, BC ==
--- NOTE | 2017-10-24 11:44 | EDPHY ---
H & P Time Seen by Provider: 10/24/17 11:33 HPI/ROS: Chief Complaint: Wound on right arm HPI: 82-year-old male who is taking Xarelto is presenting for evaluation of a wound on his right forearm. Patient noted a small dot on his arm about a week ago. His grown to about a half-dollar size. There is a central area where the skin has come off with a small amount of bleeding. He has not had any fevers. Is not been warm. Does not recall any injuries. He is wondering if he may have had an insect bite. No fevers or chills. No streaking up his arm. Otherwise has been in his normal state health. ROS: 10 point Review of Systems is negative except as noted in the HPI. Physical Exam: General: Awake, alert, no acute distress Extremities: Right forearm. There is a small 5 mm x 8 mm excoriated area with with skin loss with surrounding 3 cm of ecchymotic skin. There is no erythema. There is no lymphadenitis. Is not warm to the touch. Skin: No rash - Medical/Surgical History Hx Asthma: No Hx Chronic Respiratory Disease: No Hx Diabetes: No Hx Cardiac Disease: No Hx Renal Disease: No Hx Cirrhosis: No Hx Alcoholism: No Hx HIV/AIDS: No Hx Splenectomy or Spleen Trauma: No Other PMH: Med hx-cholesterol, Brain aneurysm,HTN,A- flutter noted 03/2017 with cardioversion 06/2017. Surg- - Social History Smoking Status: Former smoker Allergies/Adverse Reactions: No Known Allergies Allergy (Verified 10/24/17 11:40) Home Medications: Medication Instructions Recorded Simvastatin [Zocor] 10 mg PO DAILY18 #0 07/01/16 Rivaroxaban [Xarelto 10mg (*)] 20 mg PO DAILY18 07/08/17 Metoprolol Tartrate [Lopressor 50 75 mg PO BID #120 tab 07/10/17 mg (*)] Docusate Sodium [Colace 100 MG (*)] 100 mg PO BID 07/22/17 Polyethylene Glycol 3350 [Miralax 17 gm PO DAILY PRN 07/22/17 17 gm (*)] Acetaminophen [Tylenol 325mg (*)] 650 mg PO Q4HRS PRN tab 07/29/17 Aspirin [Aspirin 81mg (*)] 81 mg PO DAILY #0 tab.chew 07/29/17 Clopidogrel Bisulfate [Plavix (*)] 75 mg PO DAILY #30 tab 07/29/17 Medical Decision Making ED Course/Re-evaluation: 82-year-old male with a ecchymosis with a small amount of skin loss on his right forearm. Is not actively bleeding at this time. I suspect it is contusions secondary to a bull mild blunt trauma as he is on blood thinners. He does not have any deep tissue tenderness masses or swelling. There is no fluctuance or pointing. There is no erythema to suggest infection. Patient has been reassured. Areas been dressed. He will follow up with primary care physician in a week. Departure - Departure Disposition: Home, Routine, Self-Care Clinical Impression: Ecchymosis of forearm Condition: Good Instructions: Ecchymosis (ED), Skin Tear (ED) Additional Instructions: Keep the wound clean and dry. Return to the emergency department for spreading redness, warmth, fevers, or chills. Follow up with primary care physician in 3-4 days for wound check. Referrals: Fer Shaikh MD [Primary Care Provider] - As per Instructions
[2017-10-24 11:51] VITALS: BP 170/81; PULSE 58; RESP 18; TEMP 98.2; O2SAT 96
== END 2017-10-24 12:13 | disposition home or self-care (01) ==
LOC: CED 11:27
DX: M79.81 Nontraumatic hematoma of soft tissue (principal); I10 Essential (primary) hypertension; Z87.891 Personal history of nicotine dependence; Z79.82 Long term (current) use of aspirin; Z79.01 Long term (current) use of anticoagulants